=== PATIENT | male | born 1940 | race Caucasian/White ===

== ENCOUNTER 2022-11-11 12:26 | Inpatient (IN) ==
--- NOTE | 2022-11-11 12:48 | Emergency Department Note ---
Impression & Plan Dizziness, Generalized weakness, Abnormal ECG, Transaminitis, Dyspnea ED Provider Note NAME: PHILIP TORRES AGE: 82 SEX: M : 1940 ARRIVES VIA: Ambulance INFORMANT: Patient, ED PROVIDER(S): Matt Allen MD CHIEF COMPLAINT: Weakness, shortness of breath MEDICAL DECISION MAKING: Patient was seen due to concern for weakness and shortness of breath. IV was established blood work was obtained patient was ordered IV fluids chest x-ray and EKG. Chest x-ray is clear. The patient did receive additional IV fluids. The patient has a white count of 15 with a hemoglobin of 13.1. Platelet count is unremarkable. Kidney function with a creatinine 1.3 but elevated BUN to creatinine ratio. Mild transaminitis but no right upper quadrant pain. TSH is normal. He patient does have some nonspecific ST changes no prior EKG for comparison. Given these concerns with associated shortness of breath initial hypoxia and history of former smoking that is through the on-call hospitalist service Meghan Salter PA-C and the patient was admitted by Dr. Bowen Prior /Outside records reviewed: I did review the patient's most recent outpatient note with Dr. Bauer which was completed March 10, 2022. Per medication list she is on aspirin 325 amlodipine 5 atorvastatin 10 and lisinopril 40. Differential diagnosis: Pneumonia, ICH, dehydration, COPD, infection, metabolic abnormality, hypo/hyperglycemia, electrolyte disturbance, anemia, hypoxia, cardiac sources, intracerebral event, toxicologic, neurologic, as well as other pathologies. Diagnostics, as interpreted by me: ECG: Normal sinus rhythm, rate of 94 normal intervals normal axis nonspecific ST changes inferiorly and laterally. No prior EKGs for comparison Cardiac monitoring: An order was placed for continuous cardiac monitoring. The monitor shows a rate of 92 with sinus rhythm. Patient was placed on pulse oximetry Medical decision rules: None Imaging studies: See below HPI: Patient presents as he initially had told somebody breathing or noted he was short of breath. He initially did not answer the door he does admit to being hard of hearing but when EMS presented they noticed him to be 86% on room air. The patient does follow primarily with [facility]. Patient does admit to lightheadedness and dizziness and states that has been "bouncing off the callahan. He relates this as to getting lightheaded and dizzy. Patient does not take a bl ood thinner medications. Patient is a former smoker has not smoked in years and the patient has not drank in several years. Patient has any chest pain shortness of breath nausea vomiting. The patient does admit to feeling very thirsty thirsty and complained of some generalized weakness. PAST MEDICAL HISTORY: See Below PAST SURGICAL HISTORY: See Below SOCIAL HISTORY: See Below HOME MEDICATIONS: See Below ALLERGIES: See Below VITALS: See Below PHYSICAL EXAMINATION: GENERAL: NAD, wearing a mask, non-toxic. Hard of hearing EYE EXAM: Normal conjunctiva. PERRL, no anisocoria and EOM's grossly intact w/o pain. Oropharynx: Edentulous, dry mucous membranes. NECK: Supple, no nuchal rigidity, no adenopathy, non-tender. No signs of meningismus. FROM of the neck with good chin to chest and neck extension. No stridor. LUNGS: Clear to auscultation. Normal chest wall mechanics. HEART: NSR, no MRG. ABDOMEN: Abdomen soft, non-tender, normo-active bowel sounds, no masses, no rebound or guarding. BACK: No CVA TTP. SKIN: No rashes and no bruising. UPPER EXTREMITIES: Upper extremities are grossly normal. LOWER EXTREMITIES: Grossly normal, no edema. NEURO EXAM: A&O x3, cranial nerves II-XII grossly intact, normal speech, moves all 4 extremities. 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 Beliefs That Will Affect Care: None marital status: Single Current Living Situation: Alone Feels Safe at Home: Yes Assistive Devices: Walker Allergies Allergies Allergy/AdvReac Type Severity Reaction Status Date / Time No Known Allergies Allergy Verified 11/11/22 16:03 Home Meds Home Medications Medication Instructions Recorded Confirmed amlodipine 5 mg tablet 5 mg PO DAILY 11/11/22 11/11/22 atorvastatin 10 mg tablet 10 mg PO DAILY 11/11/22 11/11/22 lisinopril 40 mg tablet 40 mg PO DAILY 11/11/22 11/11/22 Results & Data (ED) Vital Signs Vital Signs - 24 hr 11/11/22 12:43 11/11/22 12:49 11/11/22 13:17 Temperature 36.7 C Temperature Source Oral Pulse Rate 101 H 87 Pulse Rhythm Regular Pulse Strength Normal Respiratory Rate 21 Respiratory Effort / Characteristics Non-Labored Respiratory Depth Normal Respiratory Pattern Regular Blood Pressure 116/61 Blood Pressure Mean 79 Blood Pressure Position Sitting Pulse Oximetry 94 94 Oxygen Delivery Method Room Air Room Air Sepsis Recent Fever Within 48 Hours No Sepsis New/Unexplained Change in Mental Status No Sepsis Action Taken by Nursing Physician Notified 11/11/22 12:48 11/11/22 13:00 11/11/22 13:30 Temperature Temperature Source Pulse Rate 89 90 92 H Pulse Rhythm Pulse Strength Respiratory Rate 23 24 17 Respiratory Effort / Characteristics Respiratory Depth Respiratory Pattern Blood Pressure Blood Pressure Mean Blood Pressure Position Pulse Oximetry 95 92 95 Oxygen Delivery Method Room Air Room Air Room Air Sepsis Recent Fever Within 48 Hours Sepsis New/Unexplained Change in Mental Status Sepsis Action Taken by Nursing 11/11/22 14:00 11/11/22 14:30 11/11/22 15:00 Temperature Temperature Source Pulse Rate 86 83 84 Pulse Rhythm Pulse Strength Respiratory Rate 20 19 22 Respiratory Effort / Characteristics Respiratory Depth Respiratory Pattern Blood Pressure 122/64 Blood Pressure Mean 83 Blood Pressure Position Pulse Oximetry 93 95 95 Oxygen Delivery Method Room Air Room Air Room Air Sepsis Recent Fever Within 48 Hours Sepsis New/Unexplained Change in Mental Status Sepsis Action Taken by Nursing 11/11/22 15:30 Temperature Temperature Source Pulse Rate 87 Pulse Rhythm Pulse Strength Respiratory Rate 24 Respiratory Effort / Characteristics Respiratory Depth Respiratory Pattern Blood Pressure Blood Pressure Mean Blood Pressure Position Pulse Oximetry 95 Oxygen Delivery Method Room Air Sepsis Recent Fever Within 48 Hours Sepsis New/Unexplained Change in Mental Status Sepsis Action Taken by [facility] Medications Current Medication List: was personally reviewed by me Laboratory Data Attestation: I reviewed the patient's lab results. 11/11/22 14:18 11/11/22 14:18 Lab Results 11/11/22 11/11/22 11/11/22 Range/Units 14:18 14:18 14:18 WBC 15.42 H (4.8-10.8) K/ul RBC 4.51 L (4.70-6.10) M/uL Hgb 13.1 L (14.0-18.0) g/dl Hct 39.4 L (42.0-52.0) % MCV 87.4 (80.0-100.0) fL MCH 29.0 (25.0-34.0) pg MCHC 33.2 (32.0-36.0) g/dL RDW Std Deviation 40.6 (36.4-46.3) fL RDW Coeff of [place] 12.6 (11.5-14.5) % Plt Count 381 (130-400) K/uL MPV 9.8 (9.4-12.4) fL Immature Gran % (Auto) 1.2 % Neut % (Auto) 86.7 % Lymph % (Auto) 6.0 % [place] % (Auto) 5.2 % Eos % (Auto) 0.6 % Baso % (Auto) 0.3 % Neut # (Auto) 13.36 H (1.40-6.50) K/uL Lymph # (Auto) 0.93 L (1.2-3.4) K/uL [place] # (Auto) 0.80 H (0.11-0.59) K/uL Eos # (Auto) 0.10 (0-0.50) K/uL Baso # (Auto) 0.05 (0-0.2) K/uL Immature Gran # (Auto) 0.18 (0.01-0.20) K/uL ESR (0-20) mm/hr Sodium 139 (136-145) mmol/L Potassium 3.1 L (3.5-5.1) mmol/L Chloride 101 (98-107) mmol/L Carbon Dioxide 29 (21-32) mmol/L Anion Gap 9 (3-11) BUN 44 H (6-23) mg/dl Creatinine 1.36 (0.6-1.4) mg/dl Est Cr Clr Drug Dosing 44.7 ml/min Est GFR ( Amer) 56.6 ml/min Est GFR (Non-Af Amer) 48.8 ml/min BUN/Creatinine Ratio 32.4 H (10-20) Glucose 120 H (70-99(Fasting)) mg/dl Calcium 8.5 (8.5-10.1) mg/dl Magnesium 2.4 (1.7-2.4) mg/dl Total Bilirubin 1.0 (0.2-1.0) mg/dl Direct Bilirubin (0-0.2) mg/dl AST 90 H (13-39) U/L ALT 58 H (7-52) U/L Alkaline Phosphatase 113 H (34-104) U/L Total Creatine Kinase (30-223) U/L Troponin I High Sens 16.3 (0-20) pg/ml C-Reactive Protein (0-0.5) mg/dl Total Protein 6.9 (6.0-8.3) gm/dl Albumin 3.1 L (3.4-5.0) gm/dl Globulin 3.8 (2.5-4.0) gm/dl Albumin/Globulin Ratio 0.8 L (0.9-2) Procalcitonin (0-0.5) ng/ml TSH 0.361 (0.300-4.500) uIu/ml Lyme Disease IgG Ab (Negative) Lyme Disease IgM Ab (Negative) 11/11/22 11/11/22 11/11/22 Range/Units 16:17 16:17 16:17 WBC (4.8-10.8) K/ul RBC (4.70-6.10) M/uL Hgb (14.0-18.0) g/dl Hct (42.0-52.0) % MCV (80.0-100.0) fL MCH (25.0-34.0) pg MCHC (32.0-36.0) g/dL RDW Std Deviation (36.4-46.3) fL RDW Coeff of [place] (11.5-14.5) % Plt Count (130-400) K/uL MPV (9.4-12.4) fL Immature Gran % (Auto) % Neut % (Auto) % Lymph % (Auto) % [place] % (Auto) % Eos % (Auto) % Baso % (Auto) % Neut # (Auto) (1.40-6.50) K/uL Lymph # (Auto) (1.2-3.4) K/uL [place] # (Auto) (0.11-0.59) K/uL Eos # (Auto) (0-0.50) K/uL Baso # (Auto) (0-0.2) K/uL Immature Gran # (Auto) (0.01-0.20) K/uL ESR 71 H (0-20) mm/hr Sodium (136-145) mmol/L Potassium (3.5-5.1) mmol/L Chloride (98-107) mmol/L Carbon Dioxide (21-32) mmol/L Anion Gap (3-11) BUN (6-23) mg/dl Creatinine (0.6-1.4) mg/dl Est Cr Clr Drug Dosing ml/min Est GFR ( Amer) ml/min Est GFR (Non-Af Amer) ml/min BUN/Creatinine Ratio (10-20) Glucose (70-99(Fasting)) mg/dl Calcium (8.5-10.1) mg/dl Magnesium (1.7-2.4) mg/dl Total Bilirubin (0.2-1.0) mg/dl Direct Bilirubin 0.5 H (0-0.2) mg/dl AST (13-39) U/L ALT (7-52) U/L Alkaline Phosphatase (34-104) U/L Total Creatine Kinase 178 (30-223) U/L Troponin I High Sens (0-20) pg/ml C-Reactive Protein 11.84 H (0-0.5) mg/dl Total Protein (6.0-8.3) gm/dl Albumin (3.4-5.0) gm/dl Globulin (2.5-4.0) gm/dl Albumin/Globulin Ratio (0.9-2) Procalcitonin 1.00 H (0-0.5) ng/ml TSH (0.300-4.500) uIu/ml Lyme Disease IgG Ab (Negative) Lyme Disease IgM Ab (Negative) 11/11/22 Range/Units 16:17 WBC (4.8-10.8) K/ul RBC (4.70-6.10) M/uL Hgb (14.0-18.0) g/dl Hct (42.0-52.0) % MCV (80.0-100.0) fL MCH (25.0-34.0) pg MCHC (32.0-36.0) g/dL RDW Std Deviation (36.4-46.3) fL RDW Coeff of [place] (11.5-14.5) % Plt Count (130-400) K/uL MPV (9.4-12.4) fL Immature Gran % (Auto) % Neut % (Auto) % Lymph % (Auto) % [place] % (Auto) % Eos % (Auto) % Baso % (Auto) % Neut # (Auto) (1.40-6.50) K/uL Lymph # (Auto) (1.2-3.4) K/uL [place] # (Auto) (0.11-0.59) K/uL Eos # (Auto) (0-0.50) K/uL Baso # (Auto) (0-0.2) K/uL Immature Gran # (Auto) (0.01-0.20) K/uL ESR (0-20) mm/hr Sodium (136-145) mmol/L Potassium (3.5-5.1) mmol/L Chloride (98-107) mmol/L Carbon Dioxide (21-32) mmol/L Anion Gap (3-11) BUN (6-23) mg/dl Creatinine (0.6-1.4) mg/dl Est Cr Clr Drug Dosing ml/min Est GFR ( Amer) ml/min Est GFR (Non-Af Amer) ml/min BUN/Creatinine Ratio (10-20) Glucose (70-99(Fasting)) mg/dl Calcium (8.5-10.1) mg/dl Magnesium (1.7-2.4) mg/dl Total Bilirubin (0.2-1.0) mg/dl Direct Bilirubin (0-0.2) mg/dl AST (13-39) U/L ALT (7-52) U/L Alkaline Phosphatase (34-104) U/L Total Creatine Kinase (30-223) U/L Troponin I High Sens (0-20) pg/ml C-Reactive Protein (0-0.5) mg/dl Total Protein (6.0-8.3) gm/dl Albumin (3.4-5.0) gm/dl Globulin (2.5-4.0) gm/dl Albumin/Globulin Ratio (0.9-2) Procalcitonin (0-0.5) ng/ml TSH (0.300-4.500) uIu/ml Lyme Disease IgG Ab Positive A (Negative) Lyme Disease IgM Ab Equivocal A (Negative) Administered Medications Potassium Chloride/Sodium Chloride (Normal Saline W/20 Meq Kcl) 20 meq in 1,000 mls @ 80 mls/hr IV .[id number] ARABELLA Stop: 11/12/22 18:59 Last Admin: 11/12/22 06:29 Dose: 80 mls/hr Documented By: Infusion: 11/12/22 06:29 Dose: 80 mls/hr Documented By: Admin: 11/11/22 18:21 Dose: 80 mls/hr Documented By: MG Doxycycline Hyclate 100 mg/ (Dextrose) 110 mls @ 50 mls/hr IV Q12H ARABELLA Stop: 11/13/22 20:59 Last Infusion: 11/12/22 00:08 Dose: 0 mls/hr Documented By: Admin: 11/11/22 21:39 Dose: 50 mls/hr Documented By: QG Discontinued Medications Sodium Chloride (Nss 1000ml) 1,000 mls @ 999 mls/hr IV .[id number] ARABELLA Stop: 11/11/22 14:15 Last Infusion: 11/11/22 14:17 Dose: 0 mls/hr Documented By: Admin: 11/11/22 13:16 Dose: 999 mls/hr Documented By: HG Sodium Chloride (Nss 1000ml) 500 mls @ 999 mls/hr IV .Q31M ONE Stop: 11/11/22 15:46 Last Infusion: 11/11/22 16:43 Dose: 0 mls/hr Documented By: Admin: 11/11/22 16:07 Dose: 999 mls/hr Documented By: HG Ceftriaxone Sodium 2,000 mg/ (Dextrose) 70 mls @ 100 mls/hr IV ONE ONE; Protocol Stop: 11/11/22 18:41 Last Infusion: 11/11/22 20:28 Dose: 0 mls/hr Documented By: Admin: 11/11/22 18:21 Dose: 100 mls/hr Documented By: MG Potassium Chloride (Potassium Chloride Crtab 20 Meq Tabcr) 40 meq PO NOW STA Stop: 11/11/22 15:22 Last Admin: 11/11/22 16:07 Dose: 40 meq Documented By: HG Imaging Data Radiologist's Impression: Chest X-Ray 11/11/22 13:09 XR chest 1V portable CLINICAL HISTORY: weakness TECHNIQUE: Single frontal radiograph of the chest was obtained. Comparison: None available at the time of this dictation. FINDINGS: No lines and tubes are seen. The cardiomediastinal silhouette is normal. The lungs are clear. No evidence of pleural effusion or pneumothorax. IMPRESSION: No acute chest disease. ACT 112: Negative or not required by law. Electronically signed by: Jose Echeverria M.D. 11/11/2022 1:46 PM Discharge Plan Visit Data Chief Complaint: Weakness Stated Complaint: SOB ED Provider: Matt Allen Discharge Problem: Dizziness, Generalized weakness, Abnormal ECG, Transaminitis, Dyspnea Patient Disposition: Admitted As Inpatient Discharge Instructions Interventions: ED Discharge Assessment Last Done: 11/11/22 17:17
[2022-11-11] MEDS ORDERED: SODIUM CHLORIDE 0.9% 1000ML 1,000 ML IV SCH (13:15)
--- NOTE | 2022-11-11 13:48 | XRay Report ---
XR chest 1V portable CLINICAL HISTORY: weakness TECHNIQUE: Single frontal radiograph of the chest was obtained. Comparison: None available at the time of this dictation. FINDINGS: No lines and tubes are seen. The cardiomediastinal silhouette is normal. The lungs are clear. No evid ence of pleural effusion or pneumothorax. IMPRESSION: No acute chest disease. ACT 112: Negative or not required by law. Electronically signed by: Jose Echeverria M.D. 11/11/2022 1:46 PM
[2022-11-11 14:39] LABS: Basophils # (auto) 0.05 K/uL (0-0.2); Basophils % (auto) 0.3 %; Eosinophils % (auto) 0.6 %; Hematocrit (blood only) 39.4 % (42.0-52.0); Hemoglobin 13.1 g/dl (14.0-18.0); Immature Granulocytes # (auto) 0.18 K/uL (0.01-0.20); Immature Granulocytes % (auto) 1.2 %; Lymphocytes # (auto) 0.93 K/uL (1.2-3.4); Mean Corpuscular Hgb Conc 33.2 g/dL (32.0-36.0); Mean Corpuscular Volume 87.4 fL (80.0-100.0); Mean Platelet Volume 9.8 fL (9.4-12.4); Monocytes % (auto) 5.2 %; Neutrophils # (auto) 13.36 K/uL (1.40-6.50); Neutrophils % (auto) 86.7 %; Platelet Count 381 K/uL (130-400); RDW Coefficient of Variation 12.6 % (11.5-14.5); RDW Standard Deviation 40.6 fL (36.4-46.3); Red Blood Count 4.51 M/uL (4.70-6.10); White Blood Count 15.42 K/ul (4.8-10.8)
[2022-11-11 14:54] LABS: Albumin Globulin Ratio 0.8 (0.9-2); Albumin Level 3.1 gm/dl (3.4-5.0); BUN Creatinine Ratio 32.4 (10-20); Calcium 8.5 mg/dl (8.5-10.1); Creatinine Clr Calc Pharmacy 44.7 ml/min; Est GFR (African American) 56.6 ml/min; Est GFR (Non-African American) 48.8 ml/min; Globulin 3.8 gm/dl (2.5-4.0); Magnesium 2.4 mg/dl (1.7-2.4); Potassium 3.1 mmol/L (3.5-5.1); Total Protein 6.9 gm/dl (6.0-8.3)
[2022-11-11 15:00] LABS: Troponin I High Sensitivity 16.3 pg/ml (0-20)
[2022-11-11] MEDS ORDERED: SODIUM CHLORIDE 0.9% 1000ML 500 ML IV ONE (15:16)
[2022-11-11] MEDS ORDERED: POTASSIUM CHLORIDE CRTAB 20 MEQ TABCR PO STA (15:21)
--- NOTE | 2022-11-11 15:58 | Electrocardiogram Report ---
Test Reason : Blood Pressure : / mmHG Vent. Rate : 094 BPM Atrial Rate : 094 BPM P-R Int : 126 ms QRS Dur : 092 ms QT Int : 354 ms P-R-T Axes : 065 065 -78 degrees QTc Int : 442 ms Poor data quality, interpretation may be adversely affected Normal sinus rhythm Abnormal ECG No previous ECGs available Confirmed by Gibson Bro ([id number]) on 11/11/2022 3:57:37 PM Referred By: REFERRED SELF Confirmed By:Gibson Bro
--- NOTE | 2022-11-11 16:34 | History & Physical Report ---
Date of Service November 11, 2022 Assessment & Plan (1) Generalized weakness: (2) Anorexia: (3) Dizziness: (4) Abnormal ECG: (5) Transaminitis: (6) Hypokalemia: (7) HTN (hypertension): (8) HLD (hyperlipidemia): Plan This is an 82-year-old male who has significant past medical history of HTN and HLD who presents to ED secondary to generalized weakness x1 week. He reports generalized weakness, poor appetite and lightheadedness/dizziness for the past week. Per EMS report he was hypoxic 86% on arrival that resolved after nebulizer treatment. Concerning lab abnormalities in ED include leukocytosis, mild ROXANNA, transaminitis and hypokalemia. He is saturating well on room air at this current time. Generalized weakness Anorexia Mild ROXANNA Hypokalemia Transaminitis Leukocytosis Admit to telemetry Baseline creatinine 1.0, BUN/creatinine 44 and 1.36 likely in setting of dehydration Gentle IV fluid with potassium repletion 80 cc/h +20 mEq KCl x2 bag Repeat labs in a.m. Obtain CK to rule out rhabdo Obtain right upper quadrant ultrasound to eval for elevated LFTs, lab work February 2022 revealed normal LFTs, patient denies alcohol or acetaminophen use, abd pain Replete potassium Obtain ESR, CRP and procalcitonin, blood cultures and urinalysis no current indication for antibiotic will await further testing consult digital photographic printer *Lab work ordered reviewed - pt with leukocytosis, elevated inflammatory markers, and elevated procalcitonin of 1. His urinalysis is not consistent with infection. We will proceed with right upper quadrant ultrasound as well as obtain Lyme and Anaplasma. Will cover empirically with IV Rocephin x1 today. Dizziness/Pre syncope EKG with nonspecific st changes possibly in setting of dehydration will cycle trops and obtain echo obtain orthostatics if continues consider carotid doppler Hypoxia pt with hypoxia documented by pre hospital personnel s/p neb tx now saturating well on room air pt reports resp illness approx 1 month ago, he did not seek treatment monitor for further resp sx Xopenex neb prn Mild Anemia normal indices will order iron, vit b12, Folate in a.m. no s/sx of bleeding HTN hold amlodipine and lisinopril due to bp 116/61 and c/o dizziness monitor, resume or reduce dosage if able HLD hold statin 2/2 transaminitis DVT ppx: SQ Lovenox Dispo: med tele, consult PT/OT, pt may need rehab DNR/DNI PCP: Cirilo A total of 75 minutes was spent with greater than 50% of that time personally viewing all current laboratory work and diagnostic imaging studies obtained in the ED. Additionally, I was able to view the patients past medication reconciliation and history with direct visualization in the patients chart. Included in the time above, a portion of that time was spent assessing the patient while discussing and collaborating with specialists, if necessary, and making medical decision making on treatment plan. All of the above was collabora caro with Dr. Bowen. Please see addendum for further details. History of Present Illness Chief Complaint: generalized weakness x 1 week. Primary Care Provider: Rubén Kerr MD This is an 82-year-old male who has significant past medical history of HTN and HLD who presents to ED secondary to generalized weakness x1 week. Patient has been relatively healthy given his age. He was last seen by PCP approximately 9 months ago. He has never been hospitalized or underwent any surgical procedure. He lives alone and typically ambulates with a walker. He was in his normal state of health until about 1 week ago when he noted he was becoming increasingly more weak. He also had significant decrease in his appetite and just overall was not hungry. He states for the last week he was mostly on a liquid diet. He has not moved his bowels in the past 3 to 4 days and typically he goes every day, but again has not ate in the past week. Up until a week ago he was walking approximately 500 feet to his mailbox every day without any difficulty, chest pain or shortness of breath. In the past week he has significant weakness getting in and out of the tub and going from sitting to standing. He also complains of being dizzy and lightheaded when ambulating. This resolves when sitting, but when it comes on he must sit quickly or he feels like he could pass out. He he denies any recent fall, illness or syncope. He denies any sick contacts as he states, "I mostly keep to myself and live alone." He does have a daughter. He denies any recent illness, fever, chills, sweats, chest pain, shortness of breath, URI symptoms, cough, hemoptysis, WEEKS, orthopnea, nausea, vomiting, abdominal pain, diarrhea, dysuria, increased urgency or frequency with urination. He denies any melena or hematochezia. He further denies arthalgias or rash. He stopped taking his blood pressure medications 2 to 3 days ago as he thought maybe this was contributing to his dizziness. He denies any change in symptoms. He also states he ran out of his medications. In ED patient remained hemodynamically stable although it was reported via prehospital personnel that he was hypoxic when found at approximately 86%. He did receive nebulizer treatment in route and has now been satting 95% on room air. His CBC and CMP were notable for leukocytosis of 15.42, anemia at 13.1 and 39.4, hypokalemia at 3.1, BUN 44, creatinine 1.36, transaminitis AST 90, ALT 58, alk phos 113.He received potassium repletion and IV fluid. Allergies Allergy/AdvReac Type Severity Reaction Status Date / Time No Known Allergies Allergy Verified 11/11/22 16:03 Home Medications Medication Instructions Recorded Confirmed Type amlodipine 5 mg tablet 5 mg PO DAILY 11/11/22 11/11/22 History atorvastatin 10 mg tablet 10 mg PO DAILY 11/11/22 11/11/22 History lisinopril 40 mg tablet 40 mg PO DAILY 11/11/22 11/11/22 History Past Med/Surg History Medical History (Updated 11/12/22 @ 08:43 by Matt Allen MD) HLD (hyperlipidemia) HTN (hypertension) Surgical History (Updated 11/11/22 @ 16:10 by Meghan Salter PA-C) No pertinent past surgical history Family History (Updated 11/11/22 @ 16:00 by Meghan Salter PA-C) Mother , 75 Stroke Father , 77 Cancer Sister , age 60 Myocardial infarction Sister , age 70 Stroke Social History Smoking Status: Former smoker Tobacco Type: Cigarettes Smoking End Date: 50 years ago; Hx Alcohol Use: No Hx Substance Use: No Preferred Language: Kazakh Communication Ability: Effective Automation And Controls Instructor Required: No Beliefs That Will Affect Care: None marital status: Single Current Living Situation: Alone Feels Safe at Home: Yes Assistive Devices: Glasses and Walker Review of Systems Review of Systems: All systems reviewed & are unremarkable except as noted in HPI & below Physical Exam Physical Exam: Constitutional: Elderly, male, sitting up in bed, slightly hard of hearing, WD/WN, vitals as above, NAD, conversing easily Head: Normocephalic, Atraumatic Eyes: PERRL, conjunctivae normal, anicteric sclerae ENMT: external ear and nose normal, oropharynx normal dry membranes Neck: trachea midline, no thyromegaly normal visual inspection Respiratory: normal respiratory effort, lungs clear to auscultation, no wheeze, rales, rhonchi. Normal insp/exp effort, no accessory muscle use Cardiovascular: RRR, no murmur, no edema Vessels: no JVD or carotid bruit Chest: normal inspection of chest Abdomen: normal bowel sounds, soft, nontender, no hepatosplenomegaly Musculoskeletal: no cyanosis or clubbing, AROM x 4 Skin: no rashes, warm and dry normal turgor Neurologic: PERRL, EOMI, accommodation nl, no face palsy, no dysarthria CN's II-XI intact bilaterally and moves all extremities Psychiatric: A+Ox3, euthymic affect Lymphatic: no cervical or axillary lymphadenopathy : deferred Results & Data Results & Data ([facility]) Vital Signs (Past 12 Hours) Vital Signs Temp Pulse Resp BP Pulse Ox O2 Del Method 11/11/22 14:30 83 19 95 Room Air 11/11/22 14:00 86 20 93 Room Air 11/11/22 13:30 92 H 17 95 Room Air 11/11/22 13:00 90 24 92 Room Air 11/11/22 12:48 89 23 95 Room Air 11/11/22 13:17 94 Room Air 11/11/22 12:49 87 11/11/22 12:43 36.7 C 101 H 21 116/61 94 Room Air Diagnostic Findings Chest X-Ray 11/11/22 13:09 XR chest 1V portable CLINICAL HISTORY: weakness TECHNIQUE: Single frontal radiograph of the chest was obtained. Comparison: None available at the time of this dictation. FINDINGS: No lines and tubes are seen. The cardiomediastinal silhouette is normal. The lungs are clear. No evidence of pleural effusion or pneumothorax. IMPRESSION: No acute chest disease. ACT 112: Negative or not required by law. Electronically signed by: Jose Echeverria M.D. 11/11/2022 1:46 PM Medications Administered Medication List Discontinued Medications Sodium Chloride (Nss 1000ml) 1,000 mls @ 999 mls/hr IV .Q1H1M ARABELLA Stop: 11/11/22 14:15 Last Infusion: 11/11/22 14:17 Dose: 0 mls/hr Documented By: Admin: 11/11/22 13:16 Dose: 999 mls/hr Documented By: HG Sodium Chloride (Nss 1000ml) 500 mls @ 999 mls/hr IV .Q31M ONE Stop: 11/11/22 15:46 Last Infusion: 11/11/22 16:43 Dose: 0 mls/hr Documented By: Admin: 11/11/22 16:07 Dose: 999 mls/hr Documented By: HG Potassium Chloride (Potassium Chloride Crtab 20 Meq Tabcr) 40 meq PO NOW STA Stop: 11/11/22 15:22 Last Admin: 11/11/22 16:07 Dose: 40 meq Documented By: HG ECG Rate (beats per minute): 94 Rhythm: normal sinus Additional Comments: st t wave changes II, III, AVR, V5/V6 QTC 442ms, viewed by nv COVID-19 Results Results COVID-19 Adm Lab Results: RBC 4.20 M/uL (4.70-6.10) L 11/12/22 WBC 12.03 K/ul (4.8-10.8) H 11/12/22 Hgb 12.4 g/dl (14.0-18.0) L 11/12/22 Hct 36.4 % (42.0-52.0) L 11/12/22 Plt Count 367 K/uL (130-400) 11/12/22 Neutrophils (%) (Auto) 76.8 % 11/12/22 Lymphocytes (%) (Auto) 11.3 % 11/12/22 Monocytes # (Auto) 0.81 K/uL (0.11-0.59) H 11/12/22 Eosinophils # (Auto) 0.42 K/uL (0-0.50) 11/12/22 Immature Granulocyte % (Auto) 1.2 % 11/12/22 Neutrophils # (Auto) 9.24 K/uL (1.40-6.50) H 11/12/22 Lymphocytes # (Auto) 1.36 K/uL (1.2-3.4) 11/12/22 Monocytes # (Auto) 0.81 K/uL (0.11-0.59) H 11/12/22 Eosinophils # (Auto) 0.42 K/uL (0-0.50) 11/12/22 Basophils # (Auto) 0.06 K/uL (0-0.2) 11/12/22 Immature Granulocyte # (Auto) 0.14 K/uL (0.01-0.20) 3 Na 139 mmol/L (136-145) 11/12/22 K 3.6 mmol/L (3.5-5.1) 11/12/22 Cl 106 mmol/L (98-107) 11/12/22 CO2 27 mmol/L (21-32) 11/12/22 Anion Gap 6 (3-11) 11/12/22 BUN 25 mg/dl (6-23) H 11/12/22 Creatinine 0.83 mg/dl (0.6-1.4) 11/12/22 BUN/Creatinine Ratio 30.1 (10-20) H 11/12/22 Glucose Level 99 mg/dl (70-99(Fasting)) 11/12/22 Ca 8.3 mg/dl (8.5-10.1) L 11/12/22 Total Bilirubin 0.7 mg/dl (0.2-1.0) 11/12/22 Direct Bilirubin 0.5 mg/dl (0-0.2) H 11/11/22 AST/SGOT 75 U/L (13-39) H 11/12/22 ALT/SGPT 48 U/L (7-52) 11/12/22 Alkaline Phosphatase 91 U/L (34-104) 11/12/22 Total Protein 6.6 gm/dl (6.0-8.3) 11/12/22 Albumin 2.8 gm/dl (3.4-5.0) L 11/12/22 Globulin 3.8 gm/dl (2.5-4.0) 11/12/22 Albumin/Globulin Ratio 0.7 (0.9-2) L 11/12/22 Total CK 178 U/L (30-223) 11/11/22 CRP 11.84 mg/dl (0-0.5) H 11/11/22 Procalcitonin 1.00 ng/ml (0-0.5) H 11/11/22 Ferritin 1283.0 ng/ml (8-388) H 11/12/22 Adenovirus (PCR) Not Detected (NotDetected) 11/11/22 B. parapertussis DNA (PCR) Not Detected (NotDetected) 10/05 B. pertussis DNA (PCR) Not Detected (NotDetected) 11/11/22 C. pneumoniae DNA (PCR) Not Detected (NotDetected) 3 Coronavirus Type OC43 (PCR) Not Detected (NotDetected) 10/05 Coronavirus Type HKU1 (PCR) Not Detected (NotDetected) 10/05 Coronavirus Type 229E (PCR) Not Detected (NotDetected) 10/05 COVID-19 PCR Not Detected (NotDetected) 11/11/22 Coronavirus Type NL63 (PCR) Not Detected (NotDetected) 10/05 Human Metapneumovirus (PCR) Not Detected (NotDetected) 10/05 Influenza Virus Type A (PCR) Not Detected (NotDetected) Influenza Virus Type B (PCR) Not Detected (NotDetected) M. pneumoniae (PCR) Not Detected (NotDetected) 11/11/22 Parainfluenza Type 1 (PCR) Not Detected (NotDetected) 10/05 Parainfluenza Type 2 (PCR) Not Detected (NotDetected) 10/05 Parainfluenza Type 3 (PCR) Not Detected (NotDetected) 10/05 Parainfluenza Type 4 (PCR) Not Detected (NotDetected) 10/05 RSV (PCR) Not Detected (NotDetected) 11/11/22 Enterovirus/Rhinovirus (PCR) Not Detected (NotDetected) SARS-CoV-2, RNA, NAAT NEGATIVE (NEGATIVE) 11/11/22 Chest X-Ray 11/11/22 Code Status & VTE Plan Code Status FULL CODE VTE Prophylaxis Plan VTE Prophylaxis will be ordered: Yes Supervising Physician Co-Signing Physician Notes Patient seen and examined by me, care coordinated with Elen Salter PA-C, please refer to her note above for further detail. Pt is an 82 yo M who w/ hx of HTN and HLD who presents to ED secondary to generalized weakness x1 week. He also reports having upper respiratory symptoms for about a week and difficulty with urination. Says his stream became slow, and he is not going as much. However his appetite also is very low for the past week. Reports that over the last week, he has been having trouble ambulating, even to get up from couch which is unusual for him, reports he lives alone. He also been feeling dizzy and lightheaded when ambulating. He stopped taking his blood pressure medications 2 to 3 days ago as he thought maybe this was contributing to his dizziness. He also states he ran out of his medications. In ED patient remained hemodynamically stable although it was reported via prehospital personnel that he was hypoxic when found at approximately 86%. He did receive nebulizer treatment in route and has now been satting 95% on room air. His CBC and CMP were notable for leukocytosis of 15.42, transaminitis AST 90, ALT 58. Patient is otherwise awake alert oriented answering questions appropriately. Lung sounds are clear to auscultation, heart sounds regular. Abdomen soft nontender nondistended. Blood cultures obtained, and further infectious work-up as above. Empirically covering with ceftriaxone and doxycycline. Continue to closely monitor. PT OT ordered. MD Andrés
[2022-11-11 17:11] LABS: Bilirubin Direct 0.5 mg/dl (0-0.2); C Reactive Protein 11.84 mg/dl (0-0.5)
[2022-11-11 17:22] LABS: Appearance Urine Clear (Clear); Bilirubin Urine Negative (Negative); Blood Urine Negative (Negative); Color Urine Dark Yellow; Glucose Urine UA Negative (Negative); Ketones Urine 1+ (Negative); Leukocyte Esterase Urine Negative (Negative); Nitrite Urine Negative (Negative); Protein Urine Trace (Negative); RBC Urine Automated 0-4 /hpf (0-4); Specific Gravity Urine 1.021 (1.000-1.030); Urobilinogen Urine Negative (Negative)
[2022-11-11] MEDS ORDERED: ALUMINUM/MAGNESIUM SUSP 30 ML UDC PO PRN (17:38)
[2022-11-11] MEDS ORDERED: ONDANSETRON INJ 2 MG/ML 2 ML VIAL IV PRN (17:38)
[2022-11-11] MEDS ORDERED: POLYETHYLENE (MIRALAX) 17 GM PACK PO PRN (17:38)
[2022-11-11] MEDS ORDERED: MAGNESIUM HYDROXIDE SUSP 30 ML UDC PO PRN (17:38)
[2022-11-11] MEDS ORDERED: LEVALBUTEROL HCL 0.63 MG/3 ML NEB NEB PRN (17:38)
[2022-11-11] MEDS ORDERED: ACETAMINOPHEN 325 MG TAB PO PRN (17:38)
[2022-11-11 17:51] LABS: Bacteria Urine Automated 1+ (Negative); Mucus Urine Present (None Prsent)
[2022-11-11] MEDS ORDERED: cefTRIAXone SODIUM 2,000 MG in DEXTROSE 5% 50 ML IV ONE (18:00)
[2022-11-11] MEDS: NSS + 20MEQ KCL 20 MEQ/1,000 ML BAG IV SCH (18:21)
[2022-11-11 20:26] LABS: Lyme Ab IgG w/WB Rflx Positive (Negative); Lyme Ab IgM w/WB Rflx Equivocal (Negative)
[2022-11-11] MEDS: DOXYCYCLINE HYCLATE 100 MG in DEXTROSE 5% 100 ML IV SCH (21:39)
[2022-11-11 22:17] LABS: Adenovirus PCR Not Detected (NotDetected); Bordetella parapertussis PCR Not Detected (NotDetected); Bordetella pertussis PCR Not Detected (NotDetected); Chlamydia pneumoniae PCR Not Detected (NotDetected); Coronavirus 229E PCR Not Detected (NotDetected); Coronavirus CoV-2 (COVID19)PCR Not Detected (NotDetected); Coronavirus HKU1 PCR Not Detected (NotDetected); Coronavirus NL63 PCR Not Detected (NotDetected); Coronavirus OC43PCR Not Detected (NotDetected); Human Metapneumovirus PCR Not Detected (NotDetected); Influenza A PCR Not Detected (NotDetected); Influenza B PCR Not Detected (NotDetected); Mycoplasma pneumoniae PCR Not Detected (NotDetected); Parainfluenza Virus 1 PCR Not Detected (NotDetected); Parainfluenza Virus 2 PCR Not Detected (NotDetected); Parainfluenza Virus 3 PCR Not Detected (NotDetected); Parainfluenza Virus 4 PCR Not Detected (NotDetected); Respiratory Syncytial VirusPCR Not Detected (NotDetected); Rhinovirus/Enterovirus PCR Not Detected (NotDetected)
[2022-11-12 03:41] LABS: Basophils # (auto) 0.06 K/uL (0-0.2); Basophils % (auto) 0.5 %; Eosinophils # (auto) 0.42 K/uL (0-0.50); Eosinophils % (auto) 3.5 %; Hematocrit (blood only) 36.4 % (42.0-52.0); Hemoglobin 12.4 g/dl (14.0-18.0); Immature Granulocytes # (auto) 0.14 K/uL (0.01-0.20); Immature Granulocytes % (auto) 1.2 %; Lymphocytes # (auto) 1.36 K/uL (1.2-3.4); Lymphocytes % (auto) 11.3 %; Mean Corpuscular Hemoglobin 29.5 pg (25.0-34.0); Mean Corpuscular Hgb Conc 34.1 g/dL (32.0-36.0); Mean Corpuscular Volume 86.7 fL (80.0-100.0); Mean Platelet Volume 9.8 fL (9.4-12.4); Monocytes # (auto) 0.81 K/uL (0.11-0.59); Monocytes % (auto) 6.7 %; Neutrophils # (auto) 9.24 K/uL (1.40-6.50); Neutrophils % (auto) 76.8 %; Platelet Count 367 K/uL (130-400); RDW Coefficient of Variation 12.5 % (11.5-14.5); RDW Standard Deviation 39.8 fL (36.4-46.3); White Blood Count 12.03 K/ul (4.8-10.8)
[2022-11-12 04:03] LABS: Albumin Globulin Ratio 0.7 (0.9-2); Albumin Level 2.8 gm/dl (3.4-5.0); BUN Creatinine Ratio 30.1 (10-20); Bilirubin,Total 0.7 mg/dl (0.2-1.0); Calcium 8.3 mg/dl (8.5-10.1); Creatinine Clr Calc Pharmacy 73.3 ml/min; Est GFR (African American) 96.3 ml/min; Est GFR (Non-African American) 83.1 ml/min; Globulin 3.8 gm/dl (2.5-4.0); Magnesium 2.2 mg/dl (1.7-2.4); Potassium 3.6 mmol/L (3.5-5.1); Total Protein 6.6 gm/dl (6.0-8.3)
[2022-11-12] MEDS: NSS + 20MEQ KCL 20 MEQ/1,000 ML BAG IV SCH ×3 (06:29→16:48)
[2022-11-12 07:38] LABS: Estimated Average Glucose 126 mg/dl
--- NOTE | 2022-11-12 08:10 | Ultrasound Report ---
US liver CLINICAL HISTORY: Elevated lfts, r/o cholecystitis COMPARISON STUDY: No previous studies for comparison. FINDINGS: No hepatic lesions are identified. Borderline dilatation of the common bile duct, measuring approximately 7 mm is noted. The common bile duct is partially obscured. There is no intrahepatic bi liary ductal dilatation. Moderate sludge within the gallbladder is noted. There is no gallbladder wal l thickening. No sonographic Brian sign was elicited. No gallstones were identified. Pancreatic body is normal. Head and tail are obscured. IMPRESSION: 1. Moderate sludge within the gallbladder. No gallstones. No evidence for acute cholecystitis. 2. Borderline dilatation of the common bile duct, measuring approximately 7 mm. 3. Partially obscured pancreas. ACT 112: Negative or not required by law. Electronically signed by: Alfonzo Wood M.D. 11/12/2022 8:08 AM
--- NOTE | 2022-11-12 08:59 | Hospitalist Progress Note ---
Date of Service November 12, 2022 Assessment & Plan (1) Generalized weakness: (2) Anorexia: (3) Dizziness: (4) Abnormal ECG: (5) Transaminitis: (6) Hypokalemia: (7) HTN (hypertension): (8) HLD (hyperlipidemia): Plan 82 yo male w/ hx of HTN and HLD who presents to ED secondary to generalized weakness x1 week. He reports generalized weakness, poor appetite and lightheadedness/dizziness for the past week. Per EMS report he was hypoxic 86% on arrival that resolved after nebulizer treatment. Concerning lab abnormalities in ED include leukocytosis, mild ROXANNA, transaminitis and hypokalemia. He has been saturating well on room air since admission Generalized weakness Anorexia Mild ROXANNA Hypokalemia Transaminitis Leukocytosis possibly secondary to Lyme dis. Admitted to telemetry Baseline creatinine 1.0, BUN/creatinine 44 and 1.36 likely in setting of dehydration Now Cr 0.8 - resolved, after IVF Cont. to monitor renal function, BMP ordered CK normal Right upper quadrant ultrasound to eval for elevated LFTs 1. Moderate sludge within the gallbladder. No gallstones. No evidence for acute cholecystitis. 2. Borderline dilatation of the common bile duct, measuring approximately 7 mm. 3. Partially obscured pancreas. LFTs already trended down No pain on palpation of abdomen Hep panel ordered on admission and pending Replete and monitor potassium ESR, CRP and procalcitonin elevated blood cultures and urinalysis - obtained and pending Anaplasma pending Lyme IgG positive and IgM equivocal Started Rocephin and doxy empirically on admission - will continue consult managed services consultant Dizziness/Pre syncope EKG with nonspecific st changes possibly in setting of dehydration troponin minimally elevated and trended down echo obtained -LV normal in size. LV systolic function is normal. EF 55 to 60%. RV systolic function is normal. LA size is normal. RA size is normal. Aortic valve sclerosis moderate, without significant aortic valvular stenosis. obtain orthostatics if continues consider carotid doppler currently pt reports feeling much better, denies dizziness Hypoxia pt with hypoxia documented by pre hospital personnel s/p neb tx now saturating well on room air pt reports resp illness approx 1 week ago, he did not seek treatment monitor for further resp sx resp biofire ordered procal elevated Xopenex neb prn ceftriaxone and doxy ordered as above Mild Anemia normal indices check iron, vit b12, Folate no s/sx of bleeding HTN hold amlodipine and lisinopril due to bp 116/61 and c/o dizziness monitor, resume or reduce dosage if able HLD hold statin 2/2 transaminitis DVT ppx: SQ Lovenox Dispo: med tele, consult PT/OT, pt may need rehab DNR/DNI PCP: Dr. Kerr Admission and Anticipated Discharge Date Admission Date: November 11, 2022 Subjective Patient seen in follow-up of weakness, elevated white blood cell count Today feeling much better, reports no fever, chills, chest pain or shortness of breath. Reports he walked in hallway and feels excited about that Reports he ate today as well Review of Systems Review of Systems: All systems reviewed & are unremarkable except as noted in Subjective Physical Exam Physical Exam: Constitutional: Elderly, male, sitting up in bed, slightly hard of hearing, WD/WN, NAD Head: Normocephalic, Atraumatic Eyes: PERRL, conjunctivae normal, anicteric sclerae ENMT: external ear and nose normal Neck: normal visual inspection Respiratory: normal respiratory effort, lungs clear to auscultation, no wheeze, rales, rhonchi. Normal insp/exp effort, no accessory muscle use Cardiovascular: RRR, no murmur, no edema Vessels: no JVD or carotid bruit Chest: normal inspection of chest Abdomen: normal bowel sounds, soft, nontender Musculoskeletal:moves extremities Skin: no rashes, warm and dry normal turgor Neurologic: PERRL, EOMI, no face palsy, no dysarthria, moves all extremities Psychiatric: A+Ox3, euthymic affect Results & Data Results & Data ([facility]) Vital Signs (Past 12 Hours) Vital Signs Temp Pulse Pulse Resp BP Pulse Ox O2 Del Method 11/12/22 07:46 37.0 C 76 18 150/79 H 94 Room Air 11/12/22 07:14 77 11/12/22 02:38 37.5 C 74 20 157/66 H 90 Room Air 11/11/22 22:09 87 11/11/22 22:22 36.8 C 86 18 145/71 H 95 Room Air Laboratory Results 11/12/22 11/12/22 11/12/22 Range/Units 03:08 03:08 03:08 WBC (4.8-10.8) K/ul RBC (4.70-6.10) M/uL Hgb (14.0-18.0) g/dl Hct (42.0-52.0) % MCV (80.0-100.0) fL MCH (25.0-34.0) pg MCHC (32.0-36.0) g/dL RDW Std Deviation (36.4-46.3) fL RDW Coeff of Rosendo (11.5-14.5) % Plt Count (130-400) K/uL MPV (9.4-12.4) fL Immature Gran % (Auto) % Neut % (Auto) % Lymph % (Auto) % Norman % (Auto) % Eos % (Auto) % Baso % (Auto) % Neut # (Auto) (1.40-6.50) K/uL Lymph # (Auto) (1.2-3.4) K/uL Norman # (Auto) (0.11-0.59) K/uL Eos # (Auto) (0-0.50) K/uL Baso # (Auto) (0-0.2) K/uL Immature Gran # (Auto) (0.01-0.20) K/uL ESR (0-20) mm/hr Sodium (136-145) mmol/L Potassium (3.5-5.1) mmol/L Chloride (98-107) mmol/L Carbon Dioxide (21-32) mmol/L Anion Gap (3-11) BUN (6-23) mg/dl Creatinine (0.6-1.4) mg/dl Est Cr Clr Drug Dosing ml/min Est GFR ( Amer) ml/min Est GFR (Non-Af Amer) ml/min BUN/Creatinine Ratio (10-20) Glucose (70-99(Fasting)) mg/dl Estimat Average Glucose mg/dl Hemoglobin A1c (4.5-5.6) % Calcium (8.5-10.1) mg/dl Magnesium (1.7-2.4) mg/dl Iron (35-175) mcg/dl Transferrin (200-360) mg/dl Ferritin (8-388) ng/ml Total Bilirubin (0.2-1.0) mg/dl Direct Bilirubin (0-0.2) mg/dl AST (13-39) U/L ALT (7-52) U/L Alkaline Phosphatase (34-104) U/L Total Creatine Kinase (30-223) U/L Troponin I High Sens 17.5 D (0-20) pg/ml C-Reactive Protein (0-0.5) mg/dl Total Protein (6.0-8.3) gm/dl Albumin (3.4-5.0) gm/dl Globulin (2.5-4.0) gm/dl Albumin/Globulin Ratio (0.9-2) Vitamin B12 289 (180-914) pg/ml Folate 7.02 (>5.38) ng/ml Procalcitonin (0-0.5) ng/ml TSH (0.300-4.500) uIu/ml Urine Color Urine Appearance (Clear) Urine pH (4.5-7.5) Ur Specific Stanton (1.000-1.030) Urine Protein (Negative) Urine Glucose (UA) (Negative) Urine Ketones (Negative) Urine Blood (Negative) Urine Nitrite (Negative) Urine Bilirubin (Negative) Urine Urobilinogen (Negative) Ur Leukocyte Esterase (Negative) Urine WBC (Auto) (0-5) /hpf Urine RBC (Auto) (0-4) /hpf U Hyaline Cast (Auto) (0-5) /lpf U Epithel Cells (Auto) (0-5) /lpf Urine Bacteria (Auto) (Negative) Urine Mucus (None Prsent) Adenovirus (PCR) (NotDetected) Anaplasma Smear A. phagocytophilum DNA B. pertussis DNA (PCR) (NotDetected) B.parapertussis DNA PCR (NotDetected) Lyme Disease IgG Ab (Negative) Lyme IgG (Western Blot) Lyme IgG 18 kDa Band Lyme IgG 23 kDa Band Lyme IgG 28 kDa Band Lyme IgG 30 kDa Band Lyme IgG 39 kDa Band Lyme IgG 41 kDa Band Lyme IgG 45 kDa Band Lyme IgG 58 kDa Band Lyme IgG 66 kDa Band Lyme IgG 93 kDa Band Lyme IgM Ab (WB) Lyme Disease IgM Ab (Negative) Lyme IgM 23 kDa Band Lyme IgM 39 kDa Band Lyme IgM 41 kDa Band C. pneumoniae DNA (PCR) (NotDetected) Coronavirus OC43 (PCR) (NotDetected) Coronavirus HKU1 (PCR) (NotDetected) Coronavirus 229E (PCR) (NotDetected) SARS-CoV-2 (PCR) (NotDetected) Coronavirus NL63 (PCR) (NotDetected) Hepatitis A IgM Ab Pending Hep Bs Antigen Pending Hep Bs Ag Confirmation Pending Hep B Core IgM Ab Pending Hepatitis C Ab (EIA) Pending Hep C Ab Signal/Cutoff Pending Human Metapneumovir PCR (NotDetected) Influenza Type A (PCR) (NotDetected) Influenza Type B (PCR) (NotDetected) M. pneumoniae (PCR) (NotDetected) Parainfluenza 1 (PCR) (NotDetected) Parainfluenza 2 (PCR) (NotDetected) Parainfluenza 3 (PCR) (NotDetected) Parainfluenza 4 (PCR) (NotDetected) RSV (PCR) (NotDetected) Entero/Rhino (PCR) (NotDetected) SARS-CoV-2, RNA, NAAT (NEGATIVE) 11/12/22 11/12/22 11/12/22 Range/Units 03:08 03:04 03:04 WBC 12.03 H (4.8-10.8) K/ul RBC 4.20 L (4.70-6.10) M/uL Hgb 12.4 L (14.0-18.0) g/dl Hct 36.4 L (42.0-52.0) % MCV 86.7 (80.0-100.0) fL MCH 29.5 (25.0-34.0) pg MCHC 34.1 (32.0-36.0) g/dL RDW Std Deviation 39.8 (36.4-46.3) fL RDW Coeff of Rosendo 12.5 (11.5-14.5) % Plt Count 367 (130-400) K/uL MPV 9.8 (9.4-12.4) fL Immature Gran % (Auto) 1.2 % Neut % (Auto) 76.8 % Lymph % (Auto) 11.3 % Norman % (Auto) 6.7 % Eos % (Auto) 3.5 % Baso % (Auto) 0.5 % Neut # (Auto) 9.24 H (1.40-6.50) K/uL Lymph # (Auto) 1.36 (1.2-3.4) K/uL Norman # (Auto) 0.81 H (0.11-0.59) K/uL Eos # (Auto) 0.42 (0-0.50) K/uL Baso # (Auto) 0.06 (0-0.2) K/uL Immature Gran # (Auto) 0.14 (0.01-0.20) K/uL ESR (0-20) mm/hr Sodium 139 (136-145) mmol/L Potassium 3.6 (3.5-5.1) mmol/L Chloride 106 (98-107) mmol/L Carbon Dioxide 27 (21-32) mmol/L Anion Gap 6 (3-11) BUN 25 H (6-23) mg/dl Creatinine 0.83 D (0.6-1.4) mg/dl Est Cr Clr Drug Dosing 73.3 ml/min Est GFR ( Amer) 96.3 ml/min Est GFR (Non-Af Amer) 83.1 ml/min BUN/Creatinine Ratio 30.1 H (10-20) Glucose 99 (70-99(Fasting)) mg/dl Estimat Average Glucose 126 mg/dl Hemoglobin A1c 6.0 H (4.5-5.6) % Calcium 8.3 L (8.5-10.1) mg/dl Magnesium 2.2 (1.7-2.4) mg/dl Iron 46 (35-175) mcg/dl Transferrin 131 L (200-360) mg/dl Ferritin 1283.0 H (8-388) ng/ml Total Bilirubin 0.7 (0.2-1.0) mg/dl Direct Bilirubin (0-0.2) mg/dl AST 75 H (13-39) U/L ALT 48 (7-52) U/L Alkaline Phosphatase 91 (34-104) U/L Total Creatine Kinase (30-223) U/L Troponin I High Sens (0-20) pg/ml C-Reactive Protein (0-0.5) mg/dl Total Protein 6.6 (6.0-8.3) gm/dl Albumin 2.8 L (3.4-5.0) gm/dl Globulin 3.8 (2.5-4.0) gm/dl Albumin/Globulin Ratio 0.7 L (0.9-2) Vitamin B12 (180-914) pg/ml Folate (>5.38) ng/ml Procalcitonin (0-0.5) ng/ml TSH (0.300-4.500) uIu/ml Urine Color Urine Appearance (Clear) Urine pH (4.5-7.5) Ur Specific Stanton (1.000-1.030) Urine Protein (Negative) Urine Glucose (UA) (Negative) Urine Ketones (Negative) Urine Blood (Negative) Urine Nitrite (Negative) Urine Bilirubin (Negative) Urine Urobilinogen (Negative) Ur Leukocyte Esterase (Negative) Urine WBC (Auto) (0-5) /hpf Urine RBC (Auto) (0-4) /hpf U Hyaline Cast (Auto) (0-5) /lpf U Epithel Cells (Auto) (0-5) /lpf Urine Bacteria (Auto) (Negative) Urine Mucus (None Prsent) Adenovirus (PCR) (NotDetected) Anaplasma Smear A. phagocytophilum DNA B. pertussis DNA (PCR) (NotDetected) B.parapertussis DNA PCR (NotDetected) Lyme Disease IgG Ab (Negative) Lyme IgG (Western Blot) Lyme IgG 18 kDa Band Lyme IgG 23 kDa Band Lyme IgG 28 kDa Band Lyme IgG 30 kDa Band Lyme IgG 39 kDa Band Lyme IgG 41 kDa Band Lyme IgG 45 kDa Band Lyme IgG 58 kDa Band Lyme IgG 66 kDa Band Lyme IgG 93 kDa Band Lyme IgM Ab (WB) Lyme Disease IgM Ab (Negative) Lyme IgM 23 kDa Band Lyme IgM 39 kDa Band Lyme IgM 41 kDa Band C. pneumoniae DNA (PCR) (NotDetected) Coronavirus OC43 (PCR) (NotDetected) Coronavirus HKU1 (PCR) (NotDetected) Coronavirus 229E (PCR) (NotDetected) SARS-CoV-2 (PCR) (NotDetected) Coronavirus NL63 (PCR) (NotDetected) Hepatitis A IgM Ab Hep Bs Antigen Hep Bs Ag Confirmation Hep B Core IgM Ab Hepatitis C Ab (EIA) Hep C Ab Signal/Cutoff Human Metapneumovir PCR (NotDetected) Influenza Type A (PCR) (NotDetected) Influenza Type B (PCR) (NotDetected) M. pneumoniae (PCR) (NotDetected) Parainfluenza 1 (PCR) (NotDetected) Parainfluenza 2 (PCR) (NotDetected) Parainfluenza 3 (PCR) (NotDetected) Parainfluenza 4 (PCR) (NotDetected) RSV (PCR) (NotDetected) Entero/Rhino (PCR) (NotDetected) SARS-CoV-2, RNA, NAAT (NEGATIVE) 11/11/22 11/11/22 11/11/22 Range/Units Unknown 21:16 21:16 WBC (4.8-10.8) K/ul RBC (4.70-6.10) M/uL Hgb (14.0-18.0) g/dl Hct (42.0-52.0) % MCV (80.0-100.0) fL MCH (25.0-34.0) pg MCHC (32.0-36.0) g/dL RDW Std Deviation (36.4-46.3) fL RDW Coeff of Rosendo (11.5-14.5) % Plt Count (130-400) K/uL MPV (9.4-12.4) fL Immature Gran % (Auto) % Neut % (Auto) % Lymph % (Auto) % Norman % (Auto) % Eos % (Auto) % Baso % (Auto) % Neut # (Auto) (1.40-6.50) K/uL Lymph # (Auto) (1.2-3.4) K/uL Norman # (Auto) (0.11-0.59) K/uL Eos # (Auto) (0-0.50) K/uL Baso # (Auto) (0-0.2) K/uL Immature Gran # (Auto) (0.01-0.20) K/uL ESR (0-20) mm/hr Sodium (136-145) mmol/L Potassium (3.5-5.1) mmol/L Chloride (98-107) mmol/L Carbon Dioxide (21-32) mmol/L Anion Gap (3-11) BUN (6-23) mg/dl Creatinine (0.6-1.4) mg/dl Est Cr Clr Drug Dosing ml/min Est GFR ( Amer) ml/min Est GFR (Non-Af Amer) ml/min BUN/Creatinine Ratio (10-20) Glucose (70-99(Fasting)) mg/dl Estimat Average Glucose mg/dl Hemoglobin A1c (4.5-5.6) % Calcium (8.5-10.1) mg/dl Magnesium (1.7-2.4) mg/dl Iron (35-175) mcg/dl Transferrin (200-360) mg/dl Ferritin (8-388) ng/ml Total Bilirubin (0.2-1.0) mg/dl Direct Bilirubin (0-0.2) mg/dl AST (13-39) U/L ALT (7-52) U/L Alkaline Phosphatase (34-104) U/L Total Creatine Kinase (30-223) U/L Troponin I High Sens 21.9 H (0-20) pg/ml C-Reactive Protein (0-0.5) mg/dl Total Protein (6.0-8.3) gm/dl Albumin (3.4-5.0) gm/dl Globulin (2.5-4.0) gm/dl Albumin/Globulin Ratio (0.9-2) Vitamin B12 (180-914) pg/ml Folate (>5.38) ng/ml Procalcitonin (0-0.5) ng/ml TSH (0.300-4.500) uIu/ml Urine Color Urine Appearance (Clear) Urine pH (4.5-7.5) Ur Specific Stanton (1.000-1.030) Urine Protein (Negative) Urine Glucose (UA) (Negative) Urine Ketones (Negative) Urine Blood (Negative) Urine Nitrite (Negative) Urine Bilirubin (Negative) Urine Urobilinogen (Negative) Ur Leukocyte Esterase (Negative) Urine WBC (Auto) (0-5) /hpf Urine RBC (Auto) (0-4) /hpf U Hyaline Cast (Auto) (0-5) /lpf U Epithel Cells (Auto) (0-5) /lpf Urine Bacteria (Auto) (Negative) Urine Mucus (None Prsent) Adenovirus (PCR) (NotDetected) Anaplasma Smear A. phagocytophilum DNA Pending B. pertussis DNA (PCR) (NotDetected) B.parapertussis DNA PCR (NotDetected) Lyme Disease IgG Ab (Negative) Lyme IgG (Western Blot) Lyme IgG 18 kDa Band Lyme IgG 23 kDa Band Lyme IgG 28 kDa Band Lyme IgG 30 kDa Band Lyme IgG 39 kDa Band Lyme IgG 41 kDa Band Lyme IgG 45 kDa Band Lyme IgG 58 kDa Band Lyme IgG 66 kDa Band Lyme IgG 93 kDa Band Lyme IgM Ab (WB) Lyme Disease IgM Ab (Negative) Lyme IgM 23 kDa Band Lyme IgM 39 kDa Band Lyme IgM 41 kDa Band C. pneumoniae DNA (PCR) (NotDetected) Coronavirus OC43 (PCR) (NotDetected) Coronavirus HKU1 (PCR) (NotDetected) Coronavirus 229E (PCR) (NotDetected) SARS-CoV-2 (PCR) (NotDetected) Coronavirus NL63 (PCR) (NotDetected) Hepatitis A IgM Ab Hep Bs Antigen Hep Bs Ag Confirmation Hep B Core IgM Ab Hepatitis C Ab (EIA) Hep C Ab Signal/Cutoff Human Metapneumovir PCR (NotDetected) Influenza Type A (PCR) (NotDetected) Influenza Type B (PCR) (NotDetected) M. pneumoniae (PCR) (NotDetected) Parainfluenza 1 (PCR) (NotDetected) Parainfluenza 2 (PCR) (NotDetected) Parainfluenza 3 (PCR) (NotDetected) Parainfluenza 4 (PCR) (NotDetected) RSV (PCR) (NotDetected) Entero/Rhino (PCR) (NotDetected) SARS-CoV-2, RNA, NAAT NEGATIVE (NEGATIVE) 11/11/22 11/11/22 11/11/22 Range/Units 20:20 17:39 17:09 WBC (4.8-10.8) K/ul RBC (4.70-6.10) M/uL Hgb (14.0-18.0) g/dl Hct (42.0-52.0) % MCV (80.0-100.0) fL MCH (25.0-34.0) pg MCHC (32.0-36.0) g/dL RDW Std Deviation (36.4-46.3) fL RDW Coeff of Rosendo (11.5-14.5) % Plt Count (130-400) K/uL MPV (9.4-12.4) fL Immature Gran % (Auto) % Neut % (Auto) % Lymph % (Auto) % Norman % (Auto) % Eos % (Auto) % Baso % (Auto) % Neut # (Auto) (1.40-6.50) K/uL Lymph # (Auto) (1.2-3.4) K/uL Norman # (Auto) (0.11-0.59) K/uL Eos # (Auto) (0-0.50) K/uL Baso # (Auto) (0-0.2) K/uL Immature Gran # (Auto) (0.01-0.20) K/uL ESR (0-20) mm/hr Sodium (136-145) mmol/L Potassium (3.5-5.1) mmol/L Chloride (98-107) mmol/L Carbon Dioxide (21-32) mmol/L Anion Gap (3-11) BUN (6-23) mg/dl Creatinine (0.6-1.4) mg/dl Est Cr Clr Drug Dosing ml/min Est GFR ( Amer) ml/min Est GFR (Non-Af Amer) ml/min BUN/Creatinine Ratio (10-20) Glucose (70-99(Fasting)) mg/dl Estimat Average Glucose mg/dl Hemoglobin A1c (4.5-5.6) % Calcium (8.5-10.1) mg/dl Magnesium (1.7-2.4) mg/dl Iron (35-175) mcg/dl Transferrin (200-360) mg/dl Ferritin (8-388) ng/ml Total Bilirubin (0.2-1.0) mg/dl Direct Bilirubin (0-0.2) mg/dl AST (13-39) U/L ALT (7-52) U/L Alkaline Phosphatase (34-104) U/L Total Creatine Kinase (30-223) U/L Troponin I High Sens (0-20) pg/ml C-Reactive Protein (0-0.5) mg/dl Total Protein (6.0-8.3) gm/dl Albumin (3.4-5.0) gm/dl Globulin (2.5-4.0) gm/dl Albumin/Globulin Ratio (0.9-2) Vitamin B12 (180-914) pg/ml Folate (>5.38) ng/ml Procalcitonin (0-0.5) ng/ml TSH (0.300-4.500) uIu/ml Urine Color Dark Yellow Urine Appearance Clear (Clear) Urine pH 5.0 (4.5-7.5) Ur Specific Stanton 1.021 (1.000-1.030) Urine Protein Trace H (Negative) Urine Glucose (UA) Negative (Negative) Urine Ketones 1+ H (Negative) Urine Blood Negative (Negative) Urine Nitrite Negative (Negative) Urine Bilirubin Negative (Negative) Urine Urobilinogen Negative (Negative) Ur Leukocyte Esterase Negative (Negative) Urine WBC (Auto) 5-10 H (0-5) /hpf Urine RBC (Auto) 0-4 (0-4) /hpf U Hyaline Cast (Auto) 5-10 H (0-5) /lpf U Epithel Cells (Auto) 10-20 H (0-5) /lpf Urine Bacteria (Auto) 1+ H (Negative) Urine Mucus Present A (None Prsent) Adenovirus (PCR) Not Detected (NotDetected) Anaplasma Smear See Comment A. phagocytophilum DNA B. pertussis DNA (PCR) Not Detected (NotDetected) B.parapertussis DNA PCR Not Detected (NotDetected) Lyme Disease IgG Ab (Negative) Lyme IgG (Western Blot) Lyme IgG 18 kDa Band Lyme IgG 23 kDa Band Lyme IgG 28 kDa Band Lyme IgG 30 kDa Band Lyme IgG 39 kDa Band Lyme IgG 41 kDa Band Lyme IgG 45 kDa Band Lyme IgG 58 kDa Band Lyme IgG 66 kDa Band Lyme IgG 93 kDa Band Lyme IgM Ab (WB) Lyme Disease IgM Ab (Negative) Lyme IgM 23 kDa Band Lyme IgM 39 kDa Band Lyme IgM 41 kDa Band C. pneumoniae DNA (PCR) Not Detected (NotDetected) Coronavirus OC43 (PCR) Not Detected (NotDetected) Coronavirus HKU1 (PCR) Not Detected (NotDetected) Coronavirus 229E (PCR) Not Detected (NotDetected) SARS-CoV-2 (PCR) Not Detected (NotDetected) Coronavirus NL63 (PCR) Not Detected (NotDetected) Hepatitis A IgM Ab Hep Bs Antigen Hep Bs Ag Confirmation Hep B Core IgM Ab Hepatitis C Ab (EIA) Hep C Ab Signal/Cutoff Human Metapneumovir PCR Not Detected (NotDetected) Influenza Type A (PCR) Not Detected (NotDetected) Influenza Type B (PCR) Not Detected (NotDetected) M. pneumoniae (PCR) Not Detected (NotDetected) Parainfluenza 1 (PCR) Not Detected (NotDetected) Parainfluenza 2 (PCR) Not Detected (NotDetected) Parainfluenza 3 (PCR) Not Detected (NotDetected) Parainfluenza 4 (PCR) Not Detected (NotDetected) RSV (PCR) Not Detected (NotDetected) Entero/Rhino (PCR) Not Detected (NotDetected) SARS-CoV-2, RNA, NAAT (NEGATIVE) 11/11/22 11/11/22 11/11/22 Range/Units 16:17 16:17 16:17 WBC (4.8-10.8) K/ul RBC (4.70-6.10) M/uL Hgb (14.0-18.0) g/dl Hct (42.0-52.0) % MCV (80.0-100.0) fL MCH (25.0-34.0) pg MCHC (32.0-36.0) g/dL RDW Std Deviation (36.4-46.3) fL RDW Coeff of Rosendo (11.5-14.5) % Plt Count (130-400) K/uL MPV (9.4-12.4) fL Immature Gran % (Auto) % Neut % (Auto) % Lymph % (Auto) % Norman % (Auto) % Eos % (Auto) % Baso % (Auto) % Neut # (Auto) (1.40-6.50) K/uL Lymph # (Auto) (1.2-3.4) K/uL Norman # (Auto) (0.11-0.59) K/uL Eos # (Auto) (0-0.50) K/uL Baso # (Auto) (0-0.2) K/uL Immature Gran # (Auto) (0.01-0.20) K/uL ESR 71 H (0-20) mm/hr Sodium (136-145) mmol/L Potassium (3.5-5.1) mmol/L Chloride (98-107) mmol/L Carbon Dioxide (21-32) mmol/L Anion Gap (3-11) BUN (6-23) mg/dl Creatinine (0.6-1.4) mg/dl Est Cr Clr Drug Dosing ml/min Est GFR ( Amer) ml/min Est GFR (Non-Af Amer) ml/min BUN/Creatinine Ratio (10-20) Glucose (70-99(Fasting)) mg/dl Estimat Average Glucose mg/dl Hemoglobin A1c (4.5-5.6) % Calcium (8.5-10.1) mg/dl Magnesium (1.7-2.4) mg/dl Iron (35-175) mcg/dl Transferrin (200-360) mg/dl Ferritin (8-388) ng/ml Total Bilirubin (0.2-1.0) mg/dl Direct Bilirubin (0-0.2) mg/dl AST (13-39) U/L ALT (7-52) U/L Alkaline Phosphatase (34-104) U/L Total Creatine Kinase (30-223) U/L Troponin I High Sens (0-20) pg/ml C-Reactive Protein (0-0.5) mg/dl Total Protein (6.0-8.3) gm/dl Albumin (3.4-5.0) gm/dl Globulin (2.5-4.0) gm/dl Albumin/Globulin Ratio (0.9-2) Vitamin B12 (180-914) pg/ml Folate (>5.38) ng/ml Procalcitonin (0-0.5) ng/ml TSH (0.300-4.500) uIu/ml Urine Color Urine Appearance (Clear) Urine pH (4.5-7.5) Ur Specific Stanton (1.000-1.030) Urine Protein (Negative) Urine Glucose (UA) (Negative) Urine Ketones (Negative) Urine Blood (Negative) Urine Nitrite (Negative) Urine Bilirubin (Negative) Urine Urobilinogen (Negative) Ur Leukocyte Esterase (Negative) Urine WBC (Auto) (0-5) /hpf Urine RBC (Auto) (0-4) /hpf U Hyaline Cast (Auto) (0-5) /lpf U Epithel Cells (Auto) (0-5) /lpf Urine Bacteria (Auto) (Negative) Urine Mucus (None Prsent) Adenovirus (PCR) (NotDetected) Anaplasma Smear A. phagocytophilum DNA B. pertussis DNA (PCR) (NotDetected) B.parapertussis DNA PCR (NotDetected) Lyme Disease IgG Ab Positive A (Negative) Lyme IgG (Western Blot) Pending Lyme IgG 18 kDa Band Pending Lyme IgG 23 kDa Band Pending Lyme IgG 28 kDa Band Pending Lyme IgG 30 kDa Band Pending Lyme IgG 39 kDa Band Pending Lyme IgG 41 kDa Band Pending Lyme IgG 45 kDa Band Pending Lyme IgG 58 kDa Band Pending Lyme IgG 66 kDa Band Pending Lyme IgG 93 kDa Band Pending Lyme IgM Ab (WB) Pending Lyme Disease IgM Ab Equivocal A (Negative) Lyme IgM 23 kDa Band Pending Lyme IgM 39 kDa Band Pending Lyme IgM 41 kDa Band Pending C. pneumoniae DNA (PCR) (NotDetected) Coronavirus OC43 (PCR) (NotDetected) Coronavirus HKU1 (PCR) (NotDetected) Coronavirus 229E (PCR) (NotDetected) SARS-CoV-2 (PCR) (NotDetected) Coronavirus NL63 (PCR) (NotDetected) Hepatitis A IgM Ab Hep Bs Antigen Hep Bs Ag Confirmation Hep B Core IgM Ab Hepatitis C Ab (EIA) Hep C Ab Signal/Cutoff Human Metapneumovir PCR (NotDetected) Influenza Type A (PCR) (NotDetected) Influenza Type B (PCR) (NotDetected) M. pneumoniae (PCR) (NotDetected) Parainfluenza 1 (PCR) (NotDetected) Parainfluenza 2 (PCR) (NotDetected) Parainfluenza 3 (PCR) (NotDetected) Parainfluenza 4 (PCR) (NotDetected) RSV (PCR) (NotDetected) Entero/Rhino (PCR) (NotDetected) SARS-CoV-2, RNA, NAAT (NEGATIVE) 11/11/22 11/11/22 11/11/22 Range/Units 16:17 16:17 14:18 WBC (4.8-10.8) K/ul RBC (4.70-6.10) M/uL Hgb (14.0-18.0) g/dl Hct (42.0-52.0) % MCV (80.0-100.0) fL MCH (25.0-34.0) pg MCHC (32.0-36.0) g/dL RDW Std Deviation (36.4-46.3) fL RDW Coeff of Rosendo (11.5-14.5) % Plt Count (130-400) K/uL MPV (9.4-12.4) fL Immature Gran % (Auto) % Neut % (Auto) % Lymph % (Auto) % Norman % (Auto) % Eos % (Auto) % Baso % (Auto) % Neut # (Auto) (1.40-6.50) K/uL Lymph # (Auto) (1.2-3.4) K/uL Norman # (Auto) (0.11-0.59) K/uL Eos # (Auto) (0-0.50) K/uL Baso # (Auto) (0-0.2) K/uL Immature Gran # (Auto) (0.01-0.20) K/uL ESR (0-20) mm/hr Sodium (136-145) mmol/L Potassium (3.5-5.1) mmol/L Chloride (98-107) mmol/L Carbon Dioxide (21-32) mmol/L Anion Gap (3-11) BUN (6-23) mg/dl Creatinine (0.6-1.4) mg/dl Est Cr Clr Drug Dosing ml/min Est GFR ( Amer) ml/min Est GFR (Non-Af Amer) ml/min BUN/Creatinine Ratio (10-20) Glucose (70-99(Fasting)) mg/dl Estimat Average Glucose mg/dl Hemoglobin A1c (4.5-5.6) % Calcium (8.5-10.1) mg/dl Magnesium (1.7-2.4) mg/dl Iron (35-175) mcg/dl Transferrin (200-360) mg/dl Ferritin (8-388) ng/ml Total Bilirubin (0.2-1.0) mg/dl Direct Bilirubin 0.5 H (0-0.2) mg/dl AST (13-39) U/L ALT (7-52) U/L Alkaline Phosphatase (34-104) U/L Total Creatine Kinase 178 (30-223) U/L Troponin I High Sens (0-20) pg/ml C-Reactive Protein 11.84 H (0-0.5) mg/dl Total Protein (6.0-8.3) gm/dl Albumin (3.4-5.0) gm/dl Globulin (2.5-4.0) gm/dl Albumin/Globulin Ratio (0.9-2) Vitamin B12 (180-914) pg/ml Folate (>5.38) ng/ml Procalcitonin 1.00 H (0-0.5) ng/ml TSH 0.361 (0.300-4.500) uIu/ml Urine Color Urine Appearance (Clear) Urine pH (4.5-7.5) Ur Specific Stanton (1.000-1.030) Urine Protein (Negative) Urine Glucose (UA) (Negative) Urine Ketones (Negative) Urine Blood (Negative) Urine Nitrite (Negative) Urine Bilirubin (Negative) Urine Urobilinogen (Negative) Ur Leukocyte Esterase (Negative) Urine WBC (Auto) (0-5) /hpf Urine RBC (Auto) (0-4) /hpf U Hyaline Cast (Auto) (0-5) /lpf U Epithel Cells (Auto) (0-5) /lpf Urine Bacteria (Auto) (Negative) Urine Mucus (None Prsent) Adenovirus (PCR) (NotDetected) Anaplasma Smear A. phagocytophilum DNA B. pertussis DNA (PCR) (NotDetected) B.parapertussis DNA PCR (NotDetected) Lyme Disease IgG Ab (Negative) Lyme IgG (Western Blot) Lyme IgG 18 kDa Band Lyme IgG 23 kDa Band Lyme IgG 28 kDa Band Lyme IgG 30 kDa Band Lyme IgG 39 kDa Band Lyme IgG 41 kDa Band Lyme IgG 45 kDa Band Lyme IgG 58 kDa Band Lyme IgG 66 kDa Band Lyme IgG 93 kDa Band Lyme IgM Ab (WB) Lyme Disease IgM Ab (Negative) Lyme IgM 23 kDa Band Lyme IgM 39 kDa Band Lyme IgM 41 kDa Band C. pneumoniae DNA (PCR) (NotDetected) Coronavirus OC43 (PCR) (NotDetected) Coronavirus HKU1 (PCR) (NotDetected) Coronavirus 229E (PCR) (NotDetected) SARS-CoV-2 (PCR) (NotDetected) Coronavirus NL63 (PCR) (NotDetected) Hepatitis A IgM Ab Hep Bs Antigen Hep Bs Ag Confirmation Hep B Core IgM Ab Hepatitis C Ab (EIA) Hep C Ab Signal/Cutoff Human Metapneumovir PCR (NotDetected) Influenza Type A (PCR) (NotDetected) Influenza Type B (PCR) (NotDetected) M. pneumoniae (PCR) (NotDetected) Parainfluenza 1 (PCR) (NotDetected) Parainfluenza 2 (PCR) (NotDetected) Parainfluenza 3 (PCR) (NotDetected) Parainfluenza 4 (PCR) (NotDetected) RSV (PCR) (NotDetected) Entero/Rhino (PCR) (NotDetected) SARS-CoV-2, RNA, NAAT (NEGATIVE) 11/11/22 11/11/22 Range/Units 14:18 14:18 WBC 15.42 H (4.8-10.8) K/ul RBC 4.51 L (4.70-6.10) M/uL Hgb 13.1 L (14.0-18.0) g/dl Hct 39.4 L (42.0-52.0) % MCV 87.4 (80.0-100.0) fL MCH 29.0 (25.0-34.0) pg MCHC 33.2 (32.0-36.0) g/dL RDW Std Deviation 40.6 (36.4-46.3) fL RDW Coeff of Rosendo 12.6 (11.5-14.5) % Plt Count 381 (130-400) K/uL MPV 9.8 (9.4-12.4) fL Immature Gran % (Auto) 1.2 % Neut % (Auto) 86.7 % Lymph % (Auto) 6.0 % [place] % (Auto) 5.2 % Eos % (Auto) 0.6 % Baso % (Auto) 0.3 % Neut # (Auto) 13.36 H (1.40-6.50) K/uL Lymph # (Auto) 0.93 L (1.2-3.4) K/uL [place] # (Auto) 0.80 H (0.11-0.59) K/uL Eos # (Auto) 0.10 (0-0.50) K/uL Baso # (Auto) 0.05 (0-0.2) K/uL Immature Gran # (Auto) 0.18 (0.01-0.20) K/uL ESR (0-20) mm/hr Sodium 139 (136-145) mmol/L Potassium 3.1 L (3.5-5.1) mmol/L Chloride 101 (98-107) mmol/L Carbon Dioxide 29 (21-32) mmol/L Anion Gap 9 (3-11) BUN 44 H (6-23) mg/dl Creatinine 1.36 (0.6-1.4) mg/dl Est Cr Clr Drug Dosing 44.7 ml/min Est GFR ( Amer) 56.6 ml/min Est GFR (Non-Af Amer) 48.8 ml/min BUN/Creatinine Ratio 32.4 H (10-20) Glucose 120 H (70-99(Fasting)) mg/dl Estimat Average Glucose mg/dl Hemoglobin A1c (4.5-5.6) % Calcium 8.5 (8.5-10.1) mg/dl Magnesium 2.4 (1.7-2.4) mg/dl Iron (35-175) mcg/dl Transferrin (200-360) mg/dl Ferritin (8-388) ng/ml Total Bilirubin 1.0 (0.2-1.0) mg/dl Direct Bilirubin (0-0.2) mg/dl AST 90 H (13-39) U/L ALT 58 H (7-52) U/L Alkaline Phosphatase 113 H (34-104) U/L Total Creatine Kinase (30-223) U/L Troponin I High Sens 16.3 (0-20) pg/ml C-Reactive Protein (0-0.5) mg/dl Total Protein 6.9 (6.0-8.3) gm/dl Albumin 3.1 L (3.4-5.0) gm/dl Globulin 3.8 (2.5-4.0) gm/dl Albumin/Globulin Ratio 0.8 L (0.9-2) Vitamin B12 (180-914) pg/ml Folate (>5.38) ng/ml Procalcitonin (0-0.5) ng/ml TSH (0.300-4.500) uIu/ml Urine Color Urine Appearance (Clear) Urine pH (4.5-7.5) Ur Specific Stanton (1.000-1.030) Urine Protein (Negative) Urine Glucose (UA) (Negative) Urine Ketones (Negative) Urine Blood (Negative) Urine Nitrite (Negative) Urine Bilirubin (Negative) Urine Urobilinogen (Negative) Ur Leukocyte Esterase (Negative) Urine WBC (Auto) (0-5) /hpf Urine RBC (Auto) (0-4) /hpf U Hyaline Cast (Auto) (0-5) /lpf U Epithel Cells (Auto) (0-5) /lpf Urine Bacteria (Auto) (Negative) Urine Mucus (None Prsent) Adenovirus (PCR) (NotDetected) Anaplasma Smear A. phagocytophilum DNA B. pertussis DNA (PCR) (NotDetected) B.parapertussis DNA PCR (NotDetected) Lyme Disease IgG Ab (Negative) Lyme IgG (Western Blot) Lyme IgG 18 kDa Band Lyme IgG 23 kDa Band Lyme IgG 28 kDa Band Lyme IgG 30 kDa Band Lyme IgG 39 kDa Band Lyme IgG 41 kDa Band Lyme IgG 45 kDa Band Lyme IgG 58 kDa Band Lyme IgG 66 kDa Band Lyme IgG 93 kDa Band Lyme IgM Ab (WB) Lyme Disease IgM Ab (Negative) Lyme IgM 23 kDa Band Lyme IgM 39 kDa Band Lyme IgM 41 kDa Band C. pneumoniae DNA (PCR) (NotDetected) Coronavirus OC43 (PCR) (NotDetected) Coronavirus HKU1 (PCR) (NotDetected) Coronavirus 229E (PCR) (NotDetected) SARS-CoV-2 (PCR) (NotDetected) Coronavirus NL63 (PCR) (NotDetected) Hepatitis A IgM Ab Hep Bs Antigen Hep Bs Ag Confirmation Hep B Core IgM Ab Hepatitis C Ab (EIA) Hep C Ab Signal/Cutoff Human Metapneumovir PCR (NotDetected) Influenza Type A (PCR) (NotDetected) Influenza Type B (PCR) (NotDetected) M. pneumoniae (PCR) (NotDetected) Parainfluenza 1 (PCR) (NotDetected) Parainfluenza 2 (PCR) (NotDetected) Parainfluenza 3 (PCR) (NotDetected) Parainfluenza 4 (PCR) (NotDetected) RSV (PCR) (NotDetected) Entero/Rhino (PCR) (NotDetected) SARS-CoV-2, RNA, NAAT (NEGATIVE) Medications Administered Current Inpatient Medications Acetaminophen (Acetaminophen 325 Mg Tab) 650 mg PO Q4H PRN PRN Reason: Pain or Fever Stop: 12/11/22 17:37 Al Hydrox/Mg Hydrox/Simethicone (Aluminum/Magnesium Susp 30 Ml Udc) 15 ml PO Q4H PRN PRN Reason: Dyspepsia Stop: 12/11/22 17:37 Enoxaparin Sodium (Enoxaparin Inj 40 Mg/0.4 Ml Syr) 40 mg SQ DAILY ARABELLA Stop: 12/12/22 08:59 Potassium Chloride/Sodium Chloride (Normal Saline W/20 Meq Kcl) 20 meq in 1,000 mls @ 80 mls/hr IV .[id number] ARABELLA Stop: 11/12/22 18:59 Last Admin: 11/12/22 06:29 Dose: 80 mls/hr Ceftriaxone Sodium 2,000 mg/ (Dextrose) 70 mls @ 100 mls/hr IV Q24H ARABELLA; Protocol Stop: 11/14/22 17:59 Doxycycline Hyclate 100 mg/ (Dextrose) 110 mls @ 50 mls/hr IV Q12H ARABELLA Stop: 11/13/22 20:59 Last Infusion: 11/12/22 00:08 Dose: Infused Levalbuterol HCl (Levalbuterol Hcl 0.63 Mg/3 Ml Neb) 0.63 mg NEB Q6R PRN; Protocol PRN Reason: sob/wheezing/hypoxia Stop: 12/11/22 17:37 Magnesium Hydroxide (Magnesium Hydroxide Susp 30 Ml Udc) 30 ml PO Q12H PRN PRN Reason: Constipation Stop: 12/11/22 17:37 Polyethylene Glycol (Polyethylene (Miralax) 17 Gm Pack) 17 gm PO DAILY PRN PRN Reason: Constipation Stop: 12/11/22 17:37
[2022-11-12] MEDS: DOXYCYCLINE HYCLATE 100 MG in DEXTROSE 5% 100 ML IV SCH ×2 (10:04→20:39)
[2022-11-12] MEDS: ENOXAPARIN INJ 40 MG/0.4 ML SYR SQ SCH (10:04)
[2022-11-12] MEDS: cefTRIAXone SODIUM 2,000 MG in DEXTROSE 5% 50 ML IV SCH (17:39)
[2022-11-12 21:50] LABS: Adenovirus F 40/41 PCR Not Detected (NotDetected); Astrovirus PCR Not Detected (NotDetected); Campylobacter PCR Not Detected (NotDetected); Cryptosporidium PCR Not Detected (NotDetected); Cyclospora cayetanensis PCR Not Detected (NotDetected); Entamoeba histolytica PCR Not Detected (NotDetected); Enteroaggregative E.coli(EAEC) Not Detected (NotDetected); Enteropathogenic E.coli (EPEC) Not Detected (NotDetected); Enterotoxigenic E.coli (ETEC) Not Detected (NotDetected); Giardia lamblia PCR Not Detected (NotDetected); Norovirus GI/GII PCR Not Detected (NotDetected); Plesiomonas shigelloides PCR Not Detected (NotDetected); Rotavirus A PCR Not Detected (NotDetected); Salmonella PCR Not Detected (NotDetected); Sapovirus PCR Not Detected (NotDetected); Shiga-like Toxin E.coli (STEC) Not Detected (NotDetected); Shigella/Enteroinvasive E.coli Not Detected (NotDetected); Vibrio cholerae PCR Not Detected (NotDetected); Vibrio species PCR Not Detected (NotDetected); Yersinia enterocolitica PCR Not Detected (NotDetected)
--- NOTE | 2022-11-13 05:02 | Electrocardiogram Report ---
Test Reason : Blood Pressure : / mmHG Vent. Rate : 078 BPM Atrial Rate : 078 BPM P-R Int : 096 ms QRS Dur : 096 ms QT Int : 402 ms P-R-T Axes : 043 066 050 degrees QTc Int : 458 ms Poor data quality, interpretation may be adversely affected Sinus rhythm with short NC Nonspecific T wave abnormality Abnormal ECG When compared with ECG of 11-NOV-2022 12:35, Nonspecific T wave abnormality has replaced inverted T waves in Inferior leads Confirmed by Israel Stewart ([id number]) on 11/13/2022 5:01:57 AM Referred By: REFERRED SELF Confirmed By:Israel Stewart
[2022-11-13 06:40] LABS: Basophils # (auto) 0.06 K/uL (0-0.2); Basophils % (auto) 0.7 %; Eosinophils # (auto) 0.33 K/uL (0-0.50); Eosinophils % (auto) 3.7 %; Hematocrit (blood only) 38.8 % (42.0-52.0); Immature Granulocytes # (auto) 0.12 K/uL (0.01-0.20); Immature Granulocytes % (auto) 1.3 %; Lymphocytes # (auto) 1.33 K/uL (1.2-3.4); Lymphocytes % (auto) 14.9 %; Mean Corpuscular Hemoglobin 28.9 pg (25.0-34.0); Mean Corpuscular Hgb Conc 33.5 g/dL (32.0-36.0); Mean Corpuscular Volume 86.2 fL (80.0-100.0); Mean Platelet Volume 9.6 fL (9.4-12.4); Monocytes # (auto) 0.66 K/uL (0.11-0.59); Monocytes % (auto) 7.4 %; Neutrophils # (auto) 6.41 K/uL (1.40-6.50); Platelet Count 366 K/uL (130-400); RDW Coefficient of Variation 12.4 % (11.5-14.5); RDW Standard Deviation 39.4 fL (36.4-46.3); White Blood Count 8.91 K/ul (4.8-10.8)
[2022-11-13 07:27] LABS: Albumin Globulin Ratio 0.8 (0.9-2); BUN Creatinine Ratio 15.3 (10-20); Bilirubin,Total 0.7 mg/dl (0.2-1.0); Calcium 8.6 mg/dl (8.5-10.1); Creatinine Clr Calc Pharmacy 84.5 ml/min; Est GFR (African American) 102.1 ml/min; Est GFR (Non-African American) 88.1 ml/min; Globulin 3.8 gm/dl (2.5-4.0); Magnesium 1.9 mg/dl (1.7-2.4); Phosphorus 2.4 mg/dl (2.5-4.9); Total Protein 6.8 gm/dl (6.0-8.3)
--- NOTE | 2022-11-13 08:10 | Hospitalist Progress Note ---
Date of Service November 13, 2022 Assessment & Plan (1) Generalized weakness: (2) Anorexia: (3) Dizziness: (4) Abnormal ECG: (5) Transaminitis: (6) Hypokalemia: (7) HTN (hypertension): (8) HLD (hyperlipidemia): Plan Assessment & Plan (1) Generalized weakness: (2) Anorexia: (3) Dizziness: (4) Abnormal ECG: (5) Transaminitis: (6) Hypokalemia: (7) HTN (hypertension): (8) HLD (hyperlipidemia): Plan 82 yo male w/ hx of HTN and HLD who presents to ED secondary to generalized weakness x1 week. He reports generalized weakness, poor appetite and lightheadedness/dizziness for the past week. Per EMS report he was hypoxic 86% on arrival that resolved after nebulizer treatment. Concerning lab abnormalities in ED include leukocytosis, mild ROXANNA, transaminitis and hypokalemia. He has been saturating well on room air since admission Generalized weakness Anorexia Mild ROXANNA Hypokalemia Transaminitis Leukocytosis - resolved, WBC now down to 8.9k possibly secondary to Lyme dis. Admitted to telemetry Baseline creatinine 1.0, BUN/creatinine 44 and 1.36 likely in setting of dehydration Now Cr 0.8 - resolved, after IVF Cont. to monitor renal function, BMP ordered CK normal Right upper quadrant ultrasound to eval for elevated LFTs 1. Moderate sludge within the gallbladder. No gallstones. No evidence for acute cholecystitis. 2. Borderline dilatation of the common bile duct, measuring approximately 7 mm. 3. Partially obscured pancreas. 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 LV systolic function is normal. EF 55 to 60%. RV systolic function is normal. LA size is normal. RA size is normal. Aortic valve sclerosis moderate, without significant aortic valvular stenosis. obtain orthostatics +orthostatics, received some IVF, BP medson hold if continues, consider carotid doppler Yesterday feeling better, now again on and off dizziness Hypoxia pt with hypoxia documented by pre hospital personnel s/p neb tx now saturating well on room air pt reports resp illness approx 1 week ago, he did not seek treatment monitor for further resp sx resp biofire - negative procal elevated at 1.0 on admission, will repeat. Xopenex neb prn ceftriaxone and doxy ordered as above Mild Anemia normal indices iron level normal, vit b12 normal lower end , Folate normal no s/sx of bleeding HTN hold amlodipine and lisinopril due to bp 116/61 and c/o dizziness on admission BP improved but pt still orthostatic monitor, resume or reduce dosage if able on DC HLD hold statin 2/2 transaminitis DVT ppx:SQ Lovenox Dispo: med tele, consult PT/OT, pt may need rehab DNR/DNI PCP: Dr. Kerr Admission and Anticipated Discharge Date Admission Date: November 11, 2022 Subjective Patient seen in follow-up of weakness, elevated white blood cell count Yesterday reported feeling much better Denies fever, chills, chest pain or shortness of breath. walked in hallway yesterday and felt excited about that Today again reports on and off dizziness, + orthostatics Reports eating ok Review of Systems Review of Systems: All systems reviewed & are unremarkable except as noted in Subjective Physical Exam Physical Exam: Constitutional: Elderly, male, sitting up in bed, slightly hard of hearing, WD/WN, NAD Head: Normocephalic, Atraumatic Eyes: PERRL, conjunctivae normal, anicteric sclerae ENMT: external ear and nose normal Neck: normal visual inspection Respiratory: normal respiratory effort, lungs clear to auscultation, no wheeze, rales, rhonchi. Normal insp/exp effort, no accessory muscle use Cardiovascular: RRR, syst murmur, no edema Vessels: no JVD or carotid bruit Chest: normal inspection of chest Abdomen: normal bowel sounds, soft, nontender Musculoskeletal:moves extremities Skin: no rashes, warm and dry normal turgor Neurologic: PERRL, EOMI, no face palsy, no dysarthria, moves all extremities Psychiatric: A+Ox3, euthymic affect Results & Data Results & Data ([facility]) Vital Signs (Past 12 Hours) Vital Signs Temp Pulse Pulse Resp BP BP Pulse Ox 11/13/22 03:03 37 C 76 18 155/87 H 94 11/12/22 23:37 37.3 C 84 20 165/86 H 93 11/12/22 21:59 76 O2 Del Method 11/13/22 03:03 Room Air 11/12/22 23:37 Room Air 11/12/22 21:59 Laboratory Results 11/13/22 11/13/22 11/12/22 Range/Units 06:09 06:09 19:00 WBC 8.91 (4.8-10.8) K/ul RBC 4.50 L (4.70-6.10) M/uL Hgb 13.0 L (14.0-18.0) g/dl Hct 38.8 L (42.0-52.0) % MCV 86.2 (80.0-100.0) fL MCH 28.9 (25.0-34.0) pg MCHC 33.5 (32.0-36.0) g/dL RDW Std Deviation 39.4 (36.4-46.3) fL RDW Coeff of Rosendo 12.4 (11.5-14.5) % Plt Count 366 (130-400) K/uL MPV 9.6 (9.4-12.4) fL Immature Gran % (Auto) 1.3 % Neut % (Auto) 72.0 % Lymph % (Auto) 14.9 % [place] % (Auto) 7.4 % Eos % (Auto) 3.7 % Baso % (Auto) 0.7 % Neut # (Auto) 6.41 (1.40-6.50) K/uL Lymph # (Auto) 1.33 (1.2-3.4) K/uL [place] # (Auto) 0.66 H (0.11-0.59) K/uL Eos # (Auto) 0.33 (0-0.50) K/uL Baso # (Auto) 0.06 (0-0.2) K/uL Immature Gran # (Auto) 0.12 (0.01-0.20) K/uL Sodium 139 (136-145) mmol/L Potassium 4.0 (3.5-5.1) mmol/L Chloride 106 (98-107) mmol/L Carbon Dioxide 28 (21-32) mmol/L Anion Gap 5 (3-11) BUN 11 (6-23) mg/dl Creatinine 0.72 (0.6-1.4) mg/dl Est Cr Clr Drug Dosing 84.5 ml/min Est GFR ( Amer) 102.1 ml/min Est GFR (Non-Af Amer) 88.1 ml/min BUN/Creatinine Ratio 15.3 (10-20) Glucose 107 H (70-99(Fasting)) mg/dl Calcium 8.6 (8.5-10.1) mg/dl Phosphorus 2.4 L (2.5-4.9) mg/dl Magnesium 1.9 (1.7-2.4) mg/dl Total Bilirubin 0.7 (0.2-1.0) mg/dl AST 64 H (13-39) U/L ALT 42 (7-52) U/L Alkaline Phosphatase 78 (34-104) U/L Total Protein 6.8 (6.0-8.3) gm/dl Albumin 3.0 L (3.4-5.0) gm/dl Globulin 3.8 (2.5-4.0) gm/dl Albumin/Globulin Ratio 0.8 L (0.9-2) Stl C. cayetanensis PCR Not Detected (NotDetected) Stool Rotavirus A PCR Not Detected (NotDetected) Stl Adenov F 40/41 PCR Not Detected (NotDetected) Stool Astrovirus (PCR) Not Detected (NotDetected) Stool Campylobacter PCR Not Detected (NotDetected) Stool Cryptosporidium PCR Not Detected (NotDetected) Stl E.coli Shiga Tox PCR Not Detected (NotDetected) Stl Enterotoxigenic E PCR Not Detected (NotDetected) Stool EPEC (PCR) Not Detected (NotDetected) Stool EAEC (PCR) Not Detected (NotDetected) Stl E. histolytica PCR Not Detected (NotDetected) Stool Giardia Lamblia PCR Not Detected (NotDetected) Stool Salmonella PCR Not Detected (NotDetected) Stool Sapovirus (PCR) Not Detected (NotDetected) Stl P. shigelloides PCR Not Detected (NotDetected) Stl Shigella/EIEC PCR Not Detected (NotDetected) St Y.enterocolitica PCR Not Detected (NotDetected) Stool Vibrio (PCR) Not Detected (NotDetected) Stl Vibrio cholerae PCR Not Detected (NotDetected) Stl Norovirus GI/GII PCR Not Detected (NotDetected) Medications Administered Current Inpatient Medications Acetaminophen (Acetaminophen 325 Mg Tab) 650 mg PO Q4H PRN PRN Reason: Pain or Fever Stop: 12/11/22 17:37 Al Hydrox/Mg Hydrox/Simethicone (Aluminum/Magnesium Susp 30 Ml Udc) 15 ml PO Q4H PRN PRN Reason: Dyspepsia Stop: 12/11/22 17:37 Enoxaparin Sodium (Enoxaparin Inj 40 Mg/0.4 Ml Syr) 40 mg SQ DAILY ARABELLA Stop: 12/12/22 08:59 Last Admin: 11/12/22 10:04 Dose: 40 mg Ceftriaxone Sodium 2,000 mg/ (Dextrose) 70 mls @ 100 mls/hr IV Q24H ARABELLA; Protocol Stop: 11/14/22 17:59 Last Infusion: 11/12/22 19:09 Dose: Infused Doxycycline Hyclate 100 mg/ (Dextrose) 110 mls @ 50 mls/hr IV Q12H ARABELLA Stop: 11/13/22 20:59 Last Infusion: 11/12/22 23:17 Dose: Infused Levalbuterol HCl (Levalbuterol Hcl 0.63 Mg/3 Ml Neb) 0.63 mg NEB Q6R PRN; P rotocol PRN Reason: sob/wheezing/hypoxia Stop: 12/11/22 17:37 Magnesium Hydroxide (Magnesium Hydroxide Susp 30 Ml Udc) 30 ml PO Q12H PRN PRN Reason: Constipation Stop: 12/11/22 17:37 Polyethylene Glycol (Polyethylene (Miralax) 17 Gm Pack) 17 gm PO DAILY PRN PRN Reason: Constipation Stop: 12/11/22 17:37
[2022-11-13] MEDS: ENOXAPARIN INJ 40 MG/0.4 ML SYR SQ SCH (08:52)
[2022-11-13] MEDS: DOXYCYCLINE HYCLATE 100 MG in DEXTROSE 5% 100 ML IV SCH (08:55)
[2022-11-13 11:23] LABS: HBSAG NON-REACTIVE (NON-REACTIVE); Hepatitis A Antibody IgM NON-REACTIVE (NON-REACTIVE); Hepatitis B Core Antibody IgM NON-REACTIVE (NON-REACTIVE)
[2022-11-13] MEDS: cefTRIAXone SODIUM 2,000 MG in DEXTROSE 5% 50 ML IV SCH (18:14)
[2022-11-14 03:12] LABS: 18KDIGG Band REACTIVE; 23KDIGG Band REACTIVE; 23KDIGM Band REACTIVE; 28KDIGG Band REACTIVE; 30KDIGG Band REACTIVE; 39KDIGG Band REACTIVE; 39KDIGM Band NON-REACTIVE; 41KDIGG Band REACTIVE; 41KDIGM Band NON-REACTIVE; 45KDIGG Band REACTIVE; 58KDIGG Band REACTIVE; 66KDIGG Band REACTIVE; 93KDIGG Band REACTIVE; Lyme Antibodies, WB IgG POSITIVE (NEGATIVE); Lyme Antibodies, WB IgM NEGATIVE (NEGATIVE)
--- NOTE | 2022-11-14 07:22 | Hospitalist Progress Note ---
Date of Service November 14, 2022 Assessment & Plan (1) Generalized weakness: (2) Anorexia: (3) Dizziness: (4) Abnormal ECG: (5) Transaminitis: (6) Hypokalemia: (7) HTN (hypertension): (8) HLD (hyperlipidemia): Plan Assessment & Plan (1) Generalized weakness: (2) Anorexia: (3) Dizziness: (4) Abnormal ECG: (5) Transaminitis: (6) Hypokalemia: (7) HTN (hypertension): (8) HLD (hyperlipidemia): Plan 82 yo male w/ hx of HTN and HLD who presents to ED secondary to generalized weakness x1 week. He reports generalized weakness, poor appetite and lightheadedness/dizziness for the past week. Per EMS report he was hypoxic 86% on arrival that resolved after nebulizer treatment. Concerning lab abnormalities in ED include leukocytosis, mild ROXANNA, transaminitis and hypokalemia. He has been saturating well on room air since admission Generalized weakness Anorexia Mild ROXANNA Hypokalemia Transaminitis Leukocytosis - resolved, WBC now down to 8.9k Likely secondary to Lyme dis. Admitted to telemetry Baseline creatinine 1.0, BUN/creatinine 44 and 1.36 likely in setting of dehydration Now Cr 0.8 - resolved, after IVF Cont. to monitor renal function, BMP ordered CK normal Right upper quadrant ultrasound to eval for elevated LFTs 1. Moderate sludge within the gallbladder. No gallstones. No evidence for acute cholecystitis. 2. Borderline dilatation of the common bile duct, measuring approximately 7 mm. 3. Partially obscured pancreas. LFTs already trended down No pain on palpation of abdomen Hep panel ordered on admission and pending Replete and monitor potassium ESR, CRP and procalcitonin elevated blood cultures and urinalysis - obtained and pending Anaplasma pending Lyme IgG Ab and all bands positive and IgM Ab equivocal, IgM 1/3 bands positive Started Rocephin and doxy empirically on admission, WBC down and normalized, procal down and normal - will continue Abx consult junior underwriter Dizziness/Pre syncope EKG with nonspecific st changes possibly in setting of dehydration troponin minimally elevated and trended down Echo obtained -LV normal in size. LV systolic function is normal. EF 55 to 60%. RV systolic function is normal. LA size is normal. RA size is normal. Aortic valve sclerosis moderate, without significant aortic valvular stenosis. obtain orthostatics +orthostatics, received some IVF, BP meds on hold if continues, consider carotid doppler Yesterday feeling of dizzy, today he feels better however has not been out of bed today Hypoxia pt with hypoxia documented by pre hospital personnel s/p neb tx now saturating well on room air pt reports resp illness approx 1 week ago, he did not seek treatment monitor for further resp sx resp biofire - negative procal elevated at 1.0 on admission, repeat. down and normalized Xopenex neb prn ceftriaxone and doxy ordered as above Mild Anemia normal indices iron level normal, vit b12 normal lower end , Folate normal no s/sx of bleeding HTN hold amlodipine and lisinopril due to bp 116/61 and c/o dizziness on admission BP improved but pt still orthostatic monitor, resume or reduce dosage if able on DC HLD hold statin 2/2 transaminitis DVT ppx:SQ Lovenox Dispo: med tele, consult PT/OT DNR/DNI PCP: Dr. Kerr Admission and Anticipated Discharge Date Admission Date: November 11, 2022 Subjective Patient seen in follow-up of weakness, elevated white blood cell count Reports feeling much better Denies fever, chills, chest pain or shortness of breath. Yesterday again reported dizziness, and + orthostatics. Today has not been out of bed yet. Reports eating ok Review of Systems Review of Systems: All systems reviewed & are unremarkable except as noted in Subjective Physical Exam Physical Exam: Constitutional: Elderly, male, sitting up in bed, slightly hard of hearing, WD/WN, NAD Head: Normocephalic, Atraumatic Eyes: PERRL, conjunctivae normal, anicteric sclerae ENMT: external ear and nose normal Neck: normal visual inspection Respiratory: normal respiratory effort, lungs clear to auscultation, no wheeze, rales, rhonchi. Normal insp/exp effort, no accessory muscle use Cardiovascular: RRR, syst murmur, no edema Vessels: no JVD or carotid bruit Chest: normal inspection of chest Abdomen: normal bowel sounds, soft, nontender Musculoskeletal:moves extremities Skin: no rashes, warm and dry normal turgor Neurologic: PERRL, EOMI, no face palsy, no dysarthria, moves all extremities Psychiatric: A+Ox3, euthymic affect Results & Data Results & Data ([facility]) Vital Signs (Past 12 Hours) Vital Signs Temp Pulse Pulse Resp BP Pulse Ox O2 Del Method 11/14/22 03:50 37.5 C 75 20 165/80 H 93 Room Air 11/13/22 22:01 72 11/13/22 23:17 37.2 C 83 20 180/92 H 93 Room Air 11/13/22 19:25 36.3 C L 84 20 151/87 H 96 Room Air Laboratory Results 11/14/22 11/14/22 11/14/22 Range/Units 06:07 06:07 06:07 WBC 7.66 (4.8-10.8) K/ul RBC 4.31 L (4.70-6.10) M/uL Hgb 12.8 L (14.0-18.0) g/dl Hct 37.5 L (42.0-52.0) % MCV 87.0 (80.0-100.0) fL MCH 29.7 (25.0-34.0) pg MCHC 34.1 (32.0-36.0) g/dL RDW Std Deviation 39.9 (36.4-46.3) fL RDW Coeff of Rosendo 12.4 (11.5-14.5) % Plt Count 380 (130-400) K/uL MPV 9.9 (9.4-12.4) fL Immature Gran % (Auto) 0.8 % Neut % (Auto) 66.6 % Lymph % (Auto) 17.6 % [place] % (Auto) 9.3 % Eos % (Auto) 4.8 % Baso % (Auto) 0.9 % Neut # (Auto) 5.10 (1.40-6.50) K/uL Lymph # (Auto) 1.35 (1.2-3.4) K/uL [place] # (Auto) 0.71 H (0.11-0.59) K/uL Eos # (Auto) 0.37 (0-0.50) K/uL Baso # (Auto) 0.07 (0-0.2) K/uL Immature Gran # (Auto) 0.06 (0.01-0.20) K/uL Sodium 139 (136-145) mmol/L Potassium 3.8 (3.5-5.1) mmol/L Chloride 104 (98-107) mmol/L Carbon Dioxide 30 (21-32) mmol/L Anion Gap 5 (3-11) BUN 9 (6-23) mg/dl Creatinine 0.77 (0.6-1.4) mg/dl Est Cr Clr Drug Dosing 79.0 ml/min Est GFR ( Amer) 99.3 ml/min Est GFR (Non-Af Amer) 85.7 ml/min BUN/Creatinine Ratio 11.7 (10-20) Glucose 107 H (70-99(Fasting)) mg/dl Calcium 8.5 (8.5-10.1) mg/dl Phosphorus 2.6 (2.5-4.9) mg/dl Magnesium 2.0 (1.7-2.4) mg/dl Total Bilirubin 0.6 (0.2-1.0) mg/dl AST 63 H (13-39) U/L ALT 43 (7-52) U/L Alkaline Phosphatase 70 (34-104) U/L Total Protein 6.8 (6.0-8.3) gm/dl Albumin 2.9 L (3.4-5.0) gm/dl Globulin 3.9 (2.5-4.0) gm/dl Albumin/Globulin Ratio 0.7 L (0.9-2) Procalcitonin 0.06 (0-0.5) ng/ml Lyme IgG (Western Blot) (NEGATIVE) Lyme IgG 18 kDa Band Lyme IgG 23 kDa Band Lyme IgG 28 kDa Band Lyme IgG 30 kDa Band Lyme IgG 39 kDa Band Lyme IgG 41 kDa Band Lyme IgG 45 kDa Band Lyme IgG 58 kDa Band Lyme IgG 66 kDa Band Lyme IgG 93 kDa Band Lyme IgM Ab (WB) (NEGATIVE) Lyme IgM 23 kDa Band Lyme IgM 39 kDa Band Lyme IgM 41 kDa Band Hepatitis A IgM Ab (NON-REACTIVE) Hep Bs Antigen (NON-REACTIVE) Hep Bs Ag Confirmation Hep B Core IgM Ab (NON-REACTIVE) Hepatitis C Ab (EIA) (NON-REACTIVE) Hep C Ab Signal/Cutoff (<1.00) 11/12/22 11/11/22 Range/Units 03:08 16:17 WBC (4.8-10.8) K/ul RBC (4.70-6.10) M/uL Hgb (14.0-18.0) g/dl Hct (42.0-52.0) % MCV (80.0-100.0) fL MCH (25.0-34.0) pg MCHC (32.0-36.0) g/dL RDW Std Deviation (36.4-46.3) fL RDW Coeff of Rosendo (11.5-14.5) % Plt Count (130-400) K/uL MPV (9.4-12.4) fL Immature Gran % (Auto) % Neut % (Auto) % Lymph % (Auto) % [place] % (Auto) % Eos % (Auto) % Baso % (Auto) % Neut # (Auto) (1.40-6.50) K/uL Lymph # (Auto) (1.2-3.4) K/uL [place] # (Auto) (0.11-0.59) K/uL Eos # (Auto) (0-0.50) K/uL Baso # (Auto) (0-0.2) K/uL Immature Gran # (Auto) (0.01-0.20) K/uL Sodium (136-145) mmol/L Potassium (3.5-5.1) mmol/L Chloride (98-107) mmol/L Carbon Dioxide (21-32) mmol/L Anion Gap (3-11) BUN (6-23) mg/dl Creatinine (0.6-1.4) mg/dl Est Cr Clr Drug Dosing ml/min Est GFR ( Amer) ml/min Est GFR (Non-Af Amer) ml/min BUN/Creatinine Ratio (10-20) Glucose (70-99(Fasting)) mg/dl Calcium (8.5-10.1) mg/dl Phosphorus (2.5-4.9) mg/dl Magnesium (1.7-2.4) mg/dl Total Bilirubin (0.2-1.0) mg/dl AST (13-39) U/L ALT (7-52) U/L Alkaline Phosphatase (34-104) U/L Total Protein (6.0-8.3) gm/dl Albumin (3.4-5.0) gm/dl Globulin (2.5-4.0) gm/dl Albumin/Globulin Ratio (0.9-2) Procalcitonin (0-0.5) ng/ml Lyme IgG (Western Blot) POSITIVE A (NEGATIVE) Lyme IgG 18 kDa Band REACTIVE A Lyme IgG 23 kDa Band REACTIVE A Lyme IgG 28 kDa Band REACTIVE A Lyme IgG 30 kDa Band REACTIVE A Lyme IgG 39 kDa Band REACTIVE A Lyme IgG 41 kDa Band REACTIVE A Lyme IgG 45 kDa Band REACTIVE A Lyme IgG 58 kDa Band REACTIVE A Lyme IgG 66 kDa Band REACTIVE A Lyme IgG 93 kDa Band REACTIVE A Lyme IgM Ab (WB) NEGATIVE (NEGATIVE) Lyme IgM 23 kDa Band REACTIVE A Lyme IgM 39 kDa Band NON-REACTIVE Lyme IgM 41 kDa Band NON-REACTIVE Hepatitis A IgM Ab NON-REACTIVE (NON-REACTIVE) Hep Bs Antigen NON-REACTIVE (NON-REACTIVE) Hep Bs Ag Confirmation TNP Hep B Core IgM Ab NON-REACTIVE (NON-REACTIVE) Hepatitis C Ab (EIA) NON-REACTIVE (NON-REACTIVE) Hep C Ab Signal/Cutoff 0.03 (<1.00) Medications Administered Current Inpatient Medications Acetaminophen (Acetaminophen 325 Mg Tab) 650 mg PO Q4H PRN PRN Reason: Pain or Fever Stop: 12/11/22 17:37 Al Hydrox/Mg Hydrox/Simethicone (Aluminum/Magnesium Susp 30 Ml Udc) 15 ml PO Q4H PRN PRN Reason: Dyspepsia Stop: 12/11/22 17:37 Enoxaparin Sodium (Enoxaparin Inj 40 Mg/0.4 Ml Syr) 40 mg SQ DAILY ARABELLA Stop: 12/12/22 08:59 Last Admin: 11/13/22 08:52 Dose: 40 mg Ceftriaxone Sodium 2,000 mg/ (Dextrose) 70 mls @ 100 mls/hr IV Q24H ARABELLA; Protocol Stop: 11/14/22 17:59 Last Infusion: 11/13/22 19:50 Dose: Infused Levalbuterol HCl (Levalbuterol Hcl 0.63 Mg/3 Ml Neb) 0.63 mg NEB Q6R PRN; Protocol PRN Reason: sob/wheezing/hypoxia Stop: 12/11/22 17:37 Magnesium Hydroxide (Magnesium Hydroxide Susp 30 Ml Udc) 30 ml PO Q12H PRN PRN Reason: Constipation Stop: 12/11/22 17:37 Polyethylene Glycol (Polyethylene (Miralax) 17 Gm Pack) 17 gm PO DAILY PRN PRN Reason: Constipation Stop: 12/11/22 17:37
[2022-11-14 07:58] LABS: Basophils # (auto) 0.07 K/uL (0-0.2); Basophils % (auto) 0.9 %; Eosinophils # (auto) 0.37 K/uL (0-0.50); Eosinophils % (auto) 4.8 %; Hematocrit (blood only) 37.5 % (42.0-52.0); Hemoglobin 12.8 g/dl (14.0-18.0); Immature Granulocytes # (auto) 0.06 K/uL (0.01-0.20); Immature Granulocytes % (auto) 0.8 %; Lymphocytes # (auto) 1.35 K/uL (1.2-3.4); Lymphocytes % (auto) 17.6 %; Mean Corpuscular Hemoglobin 29.7 pg (25.0-34.0); Mean Corpuscular Hgb Conc 34.1 g/dL (32.0-36.0); Mean Platelet Volume 9.9 fL (9.4-12.4); Monocytes # (auto) 0.71 K/uL (0.11-0.59); Monocytes % (auto) 9.3 %; Neutrophils % (auto) 66.6 %; Platelet Count 380 K/uL (130-400); RDW Coefficient of Variation 12.4 % (11.5-14.5); RDW Standard Deviation 39.9 fL (36.4-46.3); Red Blood Count 4.31 M/uL (4.70-6.10); White Blood Count 7.66 K/ul (4.8-10.8)
[2022-11-14 08:12] LABS: Albumin Level 2.9 gm/dl (3.4-5.0); Bilirubin,Total 0.6 mg/dl (0.2-1.0); Calcium 8.5 mg/dl (8.5-10.1); Potassium 3.8 mmol/L (3.5-5.1)
[2022-11-14 08:18] LABS: Albumin Globulin Ratio 0.7 (0.9-2); BUN Creatinine Ratio 11.7 (10-20); Est GFR (African American) 99.3 ml/min; Est GFR (Non-African American) 85.7 ml/min; Globulin 3.9 gm/dl (2.5-4.0); Phosphorus 2.6 mg/dl (2.5-4.9); Total Protein 6.8 gm/dl (6.0-8.3)
[2022-11-14] MEDS: ENOXAPARIN INJ 40 MG/0.4 ML SYR SQ SCH (08:35)
[2022-11-14] MEDS: ADVANCED PROBIOTIC 1250 MG CAPSULE PO SCH (12:20)
[2022-11-15 06:41] LABS: Hematocrit (blood only) 39.1 % (42.0-52.0); Hemoglobin 13.2 g/dl (14.0-18.0); Mean Corpuscular Hemoglobin 29.2 pg (25.0-34.0); Mean Corpuscular Hgb Conc 33.8 g/dL (32.0-36.0); Mean Corpuscular Volume 86.5 fL (80.0-100.0); Mean Platelet Volume 9.5 fL (9.4-12.4); Platelet Count 378 K/uL (130-400); RDW Coefficient of Variation 12.5 % (11.5-14.5); RDW Standard Deviation 39.8 fL (36.4-46.3); Red Blood Count 4.52 M/uL (4.70-6.10); White Blood Count 6.96 K/ul (4.8-10.8)
[2022-11-15 07:03] LABS: BUN Creatinine Ratio 13.8 (10-20); Calcium 8.8 mg/dl (8.5-10.1); Creatinine Clr Calc Pharmacy 93.6 ml/min; Est GFR (African American) 106.5 ml/min; Est GFR (Non-African American) 91.9 ml/min; Phosphorus 2.8 mg/dl (2.5-4.9); Potassium 3.9 mmol/L (3.5-5.1)
[2022-11-15] MEDS ORDERED: DOXYCYCLINE HYCLATE 100 MG in DEXTROSE 5% 100 ML IV SCH (08:00)
[2022-11-15] MEDS: ENOXAPARIN INJ 40 MG/0.4 ML SYR SQ SCH (08:07)
[2022-11-15] MEDS: ADVANCED PROBIOTIC 1250 MG CAPSULE PO SCH (08:07)
--- NOTE | 2022-11-15 08:54 | Discharge Summary ---
Date of Service November 15, 2022 Admission HPI Per Admitting Provider This is an 82-year-old male who has significant past medical history of HTN and HLD who presents to ED secondary to generalized weakness x1 week. Patient has been relatively healthy given his age. He was last seen by PCP approximately 9 months ago. He has never been hospitalized or underwent any surgical procedure. He lives alone and typically ambulates with a walker. He was in his normal state of health until about 1 week ago when he noted he was becoming increasingly more weak. He also had significant decrease in his appetite and just overall was not hungry. He states for the last week he was mostly on a l iquid diet. He has not moved his bowels in the past 3 to 4 days and typically he goes every day, but again has not ate in the past week. Up until a week ago he was walking approximately 500 feet to his mailbox every day without any difficulty, chest pain or shortness of breath. In the past week he has significant weakness getting in and out of the tub and going from sitting to standing. He also complains of being dizzy and lightheaded when ambulating. This resolves when sitting, but when it comes on he must sit quickly or he feels like he could pass out. He he denies any recent fall, illness or syncope. He denies any sick contacts as he states, "I mostly keep to myself and live alone." He does have a daughter. He denies any recent illness, fever, chills, sweats, chest pain, shortness of breath, URI symptoms, cough, hemoptysis, WEEKS, orthopnea, nausea, vomiting, abdominal pain, diarrhea, dysuria, increased urgency or frequency with urination. He denies any melena or hematochezia. He further denies arthalgias or rash. He stopped taking his blood pressure medications 2 to 3 days ago as he thought maybe this was contributing to his dizziness. He denies any change in symptoms. He also states he ran out of his medications. In ED patient remained hemodynamically stable although it was reported via prehospital personnel that he was hypoxic when found at approximately 86%. He did receive nebulizer treatment in route and has now been satting 95% on room air. His CBC and CMP were notable for leukocytosis of 15.42, anemia at 13.1 and 39.4, hypokalemia at 3.1, BUN 44, creatinine 1.36, transaminitis AST 90, ALT 58, alk phos 113.He received potassium repletion and IV fluid. Admission Exam Per Admitting Provider Constitutional: Elderly, male, sitting up in bed, slightly hard of hearing, WD/WN, vitals as above, NAD, conversing easily Head: Normocephalic, Atraumatic Eyes: PERRL, conjunctivae normal, anicteric sclerae ENMT: external ear and nose normal, oropharynx normal dry membranes Neck: trachea midline, no thyromegaly normal visual inspection Respiratory: normal respiratory effort, lungs clear to auscultation, no wheeze, rales, rhonchi. Normal insp/exp effort, no accessory muscle use Cardiovascular: RRR, no murmur, no edema Vessels: no JVD or carotid bruit Chest: normal inspection of chest Abdomen: normal bowel sounds, soft, nontender, no hepatosplenomegaly Musculoskeletal: no cyanosis or clubbing, AROM x 4 Skin: no rashes, warm and dry normal turgor Neurologic: PERRL, EOMI, accommodation nl, no face palsy, no dysarthria CN's II-XI intact bilaterally and moves all extremities Psychiatric: A+Ox3, euthymic affect Principal Diagnosis Weakness, dizziness, elevated LFTs, ROXANNA, likely secondary to Lyme disease episode of NSVT Discharge Exam Constitutional: Elderly, male, sitting up in bed, slightly hard of hearing, WD/WN, NAD Head: Normocephalic, Atraumatic Eyes: PERRL, conjunctivae normal, anicteric sclerae ENMT: external ear and nose normal Neck: normal visual inspection Respiratory: normal respiratory effort, lungs clear to auscultation, no wheeze, rales, rhonchi. Normal insp/exp effort, no accessory muscle use Cardiovascular: RRR, syst murmur, no edema Vessels: no JVD or carotid bruit Chest: normal inspection of chest Abdomen: normal bowel sounds, soft, nontender Musculoskeletal:moves extremities Skin: no rashes, warm and dry normal turgor Neurologic: PERRL, EOMI, no face palsy, no dysarthria, moves all extremities Psychiatric: A+Ox3, euthymic affect Discharge Data Allergies Allergy/AdvReac Type Severity Reaction Status Date / Time No Known Allergies Allergy Verified 11/11/22 16:03 Consultations 11/11/22 16:31 ED Decision to Admit Stat Ordered Studies 11/12/22 16:27 US liver Routine FINDINGS: No hepatic lesions are identified. Borderline dilatation of the common bile duct, measuring approximately 7 mm is noted. The common bile duct is partially obscured. There is no intrahepatic biliary ductal dilatation. Moderate sludge within the gallbladder is noted. There is no gallbladder wall thickening. No sonographic Brian sign was elicited. No gallstones were identified. Pancreatic body is normal. Head and tail are obscured. IMPRESSION: 1. Moderate sludge within the gallbladder. No gallstones. No evidence for acute cholecystitis. 2. Borderline dilatation of the common bile duct, measuring approximately 7 mm. 3. Partially obscured pancreas. Hospital Course (1) Generalized weakness: (2) Anorexia: (3) Dizziness: (4) Abnormal ECG: (5) Transaminitis: (6) Hypokalemia: (7) HTN (hypertension): (8) HLD (hyperlipidemia): Plan Assessment & Plan (1) Generalized weakness: (2) Anorexia: (3) Dizziness: (4) Abnormal ECG: (5) Transaminitis: (6) Hypokalemia: (7) HTN (hypertension): (8) HLD (hyperlipidemia): Plan 82 yo male w/ hx of HTN and HLD who presents to ED secondary to generalized weakness x1 week. He reports generalized weakness, poor appetite and lightheadedness/dizziness for the past week. Per EMS report he was hypoxic 86% on arrival that resolved after nebulizer treatment. Concerning lab abnormalities in ED include leukocytosis, mild ROXANNA, transaminitis and hypokalemia. He has been saturating well on room air since admission Generalized weakness Anorexia Mild ROXANNA Hypokalemia Transaminitis Leukocytosis - resolved, WBC now down to 6.9k Likely secondary to Lyme dis. Admitted to telemetry Baseline creatinine 1.0, BUN/creatinine 44 and 1.36 likely in setting of dehydration Now Cr 0.7 - resolved, after IVF Cont. to monitor renal function, BMP ordered CK normal Right upper quadrant ultrasound to eval for elevated LFTs 1. Moderate sludge within the gallbladder. No gallstones. No evidence for acute cholecystitis. 2. Borderline dilatation of the common bile duct, measuring approximately 7 mm. 3. Partially obscured pancreas. LFTs already trended down No pain on palpation of abdomen Hep panel ordered on admission - negative Replete and monitor potassium ESR, CRP and procalcitonin elevated blood cultures - NGTD, final results pending ua - obtained - no nitrite, no leuk esterase, 1+ bacteria, 10-20 epith. cells. ucultx - c/w likely skin ganesh Anaplasma pending Lyme IgG Ab and all bands positive and IgM Ab equivocal, IgM 1/3 bands positive Started Rocephin and doxy empirically on admission, WBC down and normalized, procal down and normal - will continue Abx Plan to DC on PO doxycycline, and follow up w/ PCP consult drafting detailer Dizziness/Pre syncope - likely secondary to above EKG with nonspecific st changes possibly in setting of dehydration troponin minimally elevated and trended down Echo obtained -LV normal in size. LV systolic function is normal. EF 55 to 60%. RV systolic function is normal. LA size is normal. RA size is normal. Aortic valve sclerosis moderate, without significant aortic valvular stenosis. obtain orthostatics +orthostatics, received some IVF, BP meds on hold if continues, consider carotid doppler Pt feels better and ambulates in hallway Follow up w/ PCP to see if he can resume his BP meds Episode of NSVT -Patient asymptomatic during the episode -Discussed with cardiology patient's echocardiogram and current findings -Recommend outpatient heart rhythm monitoring/Zio patch Hypoxia pt with hypoxia documented by pre hospital personnel s/p zen tx now saturating well on room air pt reports resp illness approx 1 week ago, he did not seek treatment monitor for further resp sx resp biofire - negative procal elevated at 1.0 on admission, repeat. down and normalized Xopenex neb prn ceftriaxone and doxy ordered as above Mild Anemia normal indices iron level normal, vit b12 normal lower end , Folate normal no s/sx of bleeding HTN hold amlodipine and lisinopril due to bp 116/61 and c/o dizziness on admission BP improved but pt still orthostatic monitor Follow up w/ PCP to see if he can resume his BP meds HLD hold statin 2/2 transaminitis Total Time Total Time Spent Total Time Spent (In Minutes): 40 Discharge Plan Discharge Items Patient Disposition: Home - Self-Care Reason For Visit: ROXANNA, ELEVATED LFTS, WEAKNESS, DIZZINESS Discharge Diagnosis: Weakness, dizziness, elevated LFTs, ROXANNA, likely secondary to Lyme disease Episode of NSVT Activity: Per Instructions section Non-emergency contact: Primary Care Provider Call non-emergency contact if: you have any medication questions and your symptoms worsen Follow-up/Referrals: Rubén Kerr MD [Primary Care Provider] - (Date & Time 11/17/2022 10:20 AM Provider Rubén Kerr MD [facility] ) Diet: Heart Healthy Addtl Attending Provider Instructions: Follow-up with your primary care provider, the appointment was scheduled for you for November 17. Finish antibiotic treatment with doxycycline as prescribed. Take 100 mg twice a day. Recommend taking probiotics, while on antibiotic, to prevent diarrhea. Do not take your blood pressure medications, amlodipine and lisinopril, until you see your primary care physician. In addition, it was noted in the hospital that you had a short episode of abnormal heart rhythm. Cardiology office will contact you about heart rhythm monitoring/Zio patch. Pending Studies at Discharge: Yes Studies:: final blood cultx Stand-Alone Forms: My [facility], Smoking Cessation Medications and DC Order Prescriptions: New Advanced Probiotic 625 mg (10 billion cell) Capsule 2 cap PO DAILY 14 Days Qty: 28 0RF doxycycline hyclate 100 mg tablet 100 mg PO BID 10 Days Qty: 20 0RF Continued atorvastatin 10 mg tablet 10 mg PO DAILY Rx Instructions: LAST FILLED 08/17/22, 90 PILLS/90 DAYS. amlodipine 5 mg tablet 5 mg PO DAILY Rx Instructions: LAST FILLED 08/17/22, 90 PILLS/90 DAYS. lisinopril 40 mg tablet 40 mg PO DAILY Rx Instructions: LAST FILLED 08/17/22, 90 PILLS/90 DAYS. Discharge Orders: Discharge Order (Routine); Ordered 11/15/22 Ordered By: Sony Bowen Admission Data Admit Date/Time: 11/11/22 16:27 Attending Provider: Sony Bowen Admit Provider: Sony Bowen Primary Care Provider: Rubén Kerr Other Providers: Sony Bowen ; [facility] ; Augustus Vu
--- NOTE | 2022-11-15 13:34 | Cardiology Consultation ---
Date of Consultation November 15, 2022 Assessment & Plan (1) Wide-complex tachycardia: Patient with a 6 beat asymptomatic harper of wide-complex tachycardia consistent with likely nonsustained ventricular tachycardia. Electrolytes are within normal limits. The patient presented with symptoms of dizziness, this has recurred having received 3 days of antibiotic therapy. Patient denies any previous history such to suggest syncope. Denies any symptoms suggestive of angina. Electrolytes within normal limits today. Echocardiogram reassuring with mild concentric left ventricular hypertrophy, normal biventricular systolic function. Would recommend outpatient 7-day Zio patch monitor, and cardiology follow-up thereafter. Perhaps a Zio patch monitor can be placed at the time of his upcoming follow-up visit on 11/17/2022 at [facility] with Dr Kerr. (2) Lyme disease: Agree with antibiotic therapy for Lyme disease, tentative plan is to transition from Rocephin to oral doxycycline. History of Present Illness Attending Physician: Sony Bowen MD History of Present Illness Kwame Lawson is an 82-year-old male seen in cardiology consultation per the request of Dr. Bowen for the evaluation of a brief episode of wide-complex tachycardia. The patient has been blessed with good health and this is actually his first hospitalization per his report. He follows with Dr. Kerr and is treated for hypertension and dyslipidemia. The patient describes himself being physically active at baseline being able to walk distances such as to his mailbox, he has a "pet wild rabbit " and feeds the birds and the deer on his property in [place]. He presented via the emergency room on 11/11/2022 with complaint of generalized illness x1 week in duration with generalized weakness, poor appetite, lightheadedness and dizziness. He states for the the few days leading up to his presentation to the emergency room he was utilizing a walker to support himself and walk short distances at home, but at baseline he is able to walk without limitation. He was noted to have a leukocytosis of 15.42 on presentation with negative blood cultures. A transthoracic echocardiogram performed 11/12/2022 (images reviewed and interpreted independent) revealed mild concentric left ventricular hypertrophy, with normal biventricular systolic function, LVEF in the range of 55 to 60%. Moderate aortic valve sclerosis without stenosis was present. The patient's Lyme screen was positive with the Western blot positive as well including multiple IgG bands and 1 of 3 IgM bands consistent with recent infection. IV Rocephin was initiated on 11/12/2022 and the patient has felt a marked improvement in his subjective symptoms. This morning at 10:24 AM he was observed to have a 6 beat run of wide-complex tachycardia with a maximum rate of 200 bpm. Spontaneous offset to sinus rhythm in the 70s noted. No evidence of bradycardia or atrioventricular block. Patient was asymptomatic at the time of the event. He denies any subjective palpitations. Allergies Allergy/AdvReac Type Severity Reaction Status Date / Time No Known Allergies Allergy Verified 11/11/22 16:03 Home Medications Medication Instructions Recorded Confirmed Type amlodipine 5 mg tablet 5 mg PO DAILY 11/11/22 11/11/22 History atorvastatin 10 mg tablet 10 mg PO DAILY 11/11/22 11/11/22 History lisinopril 40 mg tablet 40 mg PO DAILY 11/11/22 11/11/22 History L.acidop,casei,lactis,rham-B.lact,liaent 2 cap PO DAILY 14 days #28 caps 11/15/22 Rx 625 mg (10 billion cell) capsule (Advanced Probiotic) doxycycline hyclate 100 mg tablet 100 mg PO BID 10 days #20 tabs 11/15/22 Rx Patient History Medical History HLD (hyperlipidemia) HTN (hypertension) Surgical History No pertinent past surgical history Family History Mother , 75 Stroke Father , 77 Cancer Sister , age 60 Myocardial infarction Sister , age 70 Stroke Social History Smoking Status: Former smoker Tobacco Type: Cigarettes Smoking End Date: 50 years ago; Hx Alcohol Use: No Hx Substance Use: No Preferred Language: [place] Communication Ability: Effective Development Architect Required: No Beliefs That Will Affect Care: None marital status: Single Current Living Situation: Alone Feels Safe at Home: Yes Assistive Devices: Glasses and Walker Review of Systems Review of Systems: All systems reviewed & are unremarkable except as noted in HPI & below Physical Exam Constitutional: WD/WN, vitals as above Respiratory: normal respiratory effort, lungs clear to auscultation Cardiovascular: Rate/Rhythm: regular rate and regular rhythm Heart Sounds: + murmur (1/6 systolic murmur) Extremities: no edema Gastrointestinal (Abdomen): normal bowel sounds, soft, nontender, no hepatosplenomegaly Neurologic: PERRL, EOMI, accommodation nl, no face palsy, no dysarthria Results & Data ([facility]) Vital Signs (Past 12 Hours) Vital Signs Temp Pulse Pulse Pulse Resp BP BP 11/15/22 11:25 36.6 C 92 H 18 122/78 11/15/22 08:00 11/15/22 10:24 120 H 11/15/22 10:21 66 11/15/22 07:27 36.4 C L 76 18 150/82 H 11/15/22 03:07 37.1 C 66 16 162/81 H Pulse Ox O2 Del Method 11/15/22 11:25 95 Room Air 11/15/22 08:00 Room Air 11/15/22 10:24 11/15/22 10:21 11/15/22 07:27 95 Room Air 11/15/22 03:07 93 Room Air Laboratory Results CBC 11/15/22 Range/Units 06:10 WBC 6.96 (4.8-10.8) K/ul RBC 4.52 L (4.70-6.10) M/uL Hgb 13.2 L (14.0-18.0) g/dl Hct 39.1 L (42.0-52.0) % Plt Count 378 (130-400) K/uL Comprehensive Metabolic Panel 11/15/22 Range/Units 06:10 Sodium 138 (136-145) mmol/L Potassium 3.9 (3.5-5.1) mmol/L Chloride 105 (98-107) mmol/L Carbon Dioxide 30 (21-32) mmol/L BUN 9 (6-23) mg/dl Creatinine 0.65 (0.6-1.4) mg/dl Glucose 107 H (70-99(Fasting)) mg/dl Calcium 8.8 (8.5-10.1) mg/dl 11/15/2022: Magnesium level 2.0 Diagnostic Findings EKG performed 11/11/2022: Sinus rhythm at 94 bpm, subtle ST-T wave changes in the inferior and lateral leads suggestive of possible ischemia. Repeat EKG 11/12/2022: Sinus rhythm at 78 bpm, ST-T wave changes resolved.
== END 2022-11-15 16:31 | disposition home health service (06) | DRG 868 ==
LOC: ED 12:26 → 2N 16:27